=== PATIENT | female | born 2000 | race Caucasian/White ===

== ENCOUNTER 2019-10-30 11:32 | Emergency (ER) | payer MEDICAID, SELFPAY ==
[2019-10-30 11:33] VITALS: BP 108/70; PULSE 96; RESP 20; TEMP 36.7; O2SAT 96; BMI 19.8
--- NOTE | 2019-10-30 11:51 | XR_ITS ---
PROCEDURE: XR SHOULDER RT MIN 2V CLINICAL INDICATION: pain COMPARISON: No exams were available for comparison FINDINGS: No fracture or dislocation. No lytic or blastic change. There is normal mineralization. The joint spaces are well-preserved. No significant degenerative/arthritic changes. No erosive changes evident. Other findings:None. IMPRESSION: No acute findings. Dictated b Marcos Rust MD 10/30/2019 12:23 Marcos Rust MD in [place] 10/30/2019 12:23
[2019-10-30 12:54] VITALS: BP 100/51; PULSE 72; RESP 16; O2SAT 98
[2019-10-30 13:00] VITALS: BP 101/61; PULSE 61; RESP 17; O2SAT 100
--- NOTE | 2019-10-30 13:17 | HMH.EDEXTP ---
ED Disposition Clinical Impression: Tendinitis of shoulder Disposition: Home, Self-Care Condition on Discharge: Good Instructions: DI for Muscle Strain Prescriptions: Nabumetone 750 mg PO BID 10 Days #20 tab Transmission Status: Sent to [facility] #[id number] Referrals: PCP,No [Primary Care Provider] - - Critical Care Critical Care Time: No Attestation: On 10/30/19, the high probability of a clinically significant, sudden or life threatening deterioration of the following system(s) required my full and direct attention, intervention and personal management. The time I documented below is in addition to time spent performing reported procedures but includes the following listed in this critical care notation. Medical Decision Making - Medical Records Medical records reviewed: Yes: I reviewed the patient's medical records. - Kelvin Inquiry Pt receiving controlled substance: No Vital Signs: 10/30/19 11:33 10/30/19 12:54 10/30/19 13:00 Temperature 98.1 F Temperature Source Oral Pulse Rate [Right] 96 H 72 61 Respiratory Rate 20 16 17 Blood Pressure [Right Arm] 108/70 L 100/51 L 101/61 L Blood Pressure Mean [Right Arm] 82 67 74 Blood Pressure Source [Right Arm] Automatic Cuff Blood Pressure Position [Right Arm] Sitting 02 Sat by Pulse Oximetry 96 98 100 Oxygen Delivery Method Room Air Extremity Problem HPI - General Chief complaint: Extremity Problem,Nontraumatic Stated complaint: Numbness in l right arm Time Seen by Provider: 10/30/19 13:17 Mode of Arrival: Ambulatory Source of Information: Patient Limitations: No Limitations Description of Symptoms (Recalled from ER Triage Doc. by RN): C/o numbness and tingling in her left shoulder since she started sleeping on an air matress 2 weeks ago. States it feels like a pulling senstion. - History of Present Illness HPI Narrative: A healthy 19-year-old female presents the emergency department with right arm and shoulder pain. She states she slipped on an air mattress couple weeks ago and since then she has had some arm pain and shoulder pain. Patient rates her pain 3 out of 10 classifies it as sharp and numbness sensation that goes into her fingers. Patient states exacerbating factors include movement alleviating factors include rest.Patient denies any recent cough or shortness of breath, patient denies any sore throat or headache, patient denies any loss of taste or smell, patient denies any malaise or fatigue, patient denies any abdominal pain nausea vomiting or diarrhea. - Related Data Previous Rx's Medication Instructions Recorded cephALEXin [Keflex 500mg Cap] 500 mg PO TID #30 cap 08/13/18 Nabumetone 750 mg PO BID 10 Days #20 tab 10/30/19 Allergies Allergy/AdvReac Type Severity Reaction Status Date / Time Penicillins [PENICILLINS] Allergy Unknown Verified 07/12/17 17:13 [facility] History - Hepatitis A Screen Drug use history?: No High risk sexual behaviors?: No History of sexually transmitted infection?: No Currently employed?: No Childcare worker?: No Do you have indoor plumbing?: Yes Do you have electricity?: Yes Attestation statement:: This patient has been screened for Hepatitis A risk factors. I have reviewed the patient's past medical history: Yes Medical History: Denies:: Diabetes Mellitus Type 1, Diabetes Mellitus Type 2 Laterality Cases: Bilateral: Tonsillectomy - Social History Smoking Status: Current every day smoker Tobacco Type: cigarettes # Packs/Day (cigarettes): 6 Alcohol Intake: current Alcohol Intake Frequency:: a few times a week Substance Use Type: marijuana Occupational Status: unemployed ROS Obtained: Yes All systems reviewed & no additional complaints - Constitutional Constitutional: Reports system reviewed and no additional complaints, except as docu - Eyes Eyes: Reports system reviewed and no additional complaints, except as docu - ENT Ears, Nose, Mouth, and Throat: Repor
[2019-10-30 13:20] VITALS: BP 103/66; PULSE 65; RESP 16; TEMP 36.8; O2SAT 98
== END 2019-10-30 13:26 | disposition home or self-care (01) ==
PROVIDERS: Emergency Provider Family Medicine
DX: M75.82 Other shoulder lesions, left shoulder (principal); Z90.09 Acquired absence of other part of head and neck; F17.210 Nicotine dependence, cigarettes, uncomplicated
CPT/HCPCS: 73030; 99282

== ENCOUNTER 2019-12-09 14:48 | Emergency (ER) | payer MEDICAID, SELFPAY ==
[2019-12-09 15:02] VITALS: BP 106/67; PULSE 76; RESP 19; TEMP 37; O2SAT 100; BMI 20.3
--- NOTE | 2019-12-09 15:11 | HMH.EDUTC ---
[facility] [place] Impression: Otitis media Qualifiers: Otitis media type: suppurative Chronicity: acute Laterality: left Recurrence: non-recurrent Spontaneous tympanic membrane rupture: without spontaneous rupture Qualified Code(s): H66.002 - Acute suppurative otitis media without spontaneous rupture of ear drum, left ear Disposition: Home, Self-Care Condition on Discharge: Good Instructions: DI for Otitis Media (Middle Ear Infection)-Child Additional Instructions: Start antibiotic as soon as possible and be sure to take as ordered for full length of time even though he should start feeling better in 24-48 hours. Tylenol or Motrin as needed for pain or fever Encourage fluids, water, Gatorade, Powerade, Pedialyte if infant/toddler/child Warm compresses often helps when placed over ear Return immediately for new or worsening symptoms no noticeable improvement in 48-72 hours and in 10-14 days to ensure the ears are return to baseline. Follow-up with primary care Prescriptions: cephALEXin [Keflex 500mg Cap] 500 mg PO BID 10 Days #20 cap Prescription Printed Referrals: PCPCarissa [Primary Care Provider] - Time of Disposition: 15:13 Medical Decision Making - Kelvin Inquiry Pt receiving controlled substance: No Vital Signs: 12/09/19 15:02 Temperature 98.6 F Temperature Source Oral Pulse Rate [Right Brachial] 76 Respiratory Rate 19 Blood Pressure [Right Arm] 106/67 L Blood Pressure Mean [Right Arm] 80 Blood Pressure Source [Right Arm] Automatic Cuff Blood Pressure Position [Right Arm] Sitting 02 Sat by Pulse Oximetry 100 [facility] [place] - General Chief complaint: Ear Stated complaint: left ear pain Time Seen by Provider: 12/09/19 15:11 Mode of Arrival: Family Vehicle Source of Information: Patient Limitations: No Limitations Description of Symptoms (Recalled from Triage Doc. by RN): pt c/o left ear pain and drainage x's 3 days HEENT Symptoms (Recalled from RN notes): Yes Resp Symptoms (Recalled from RN notes): No Skin Symptoms (Recalled from RN notes): No MS Symptoms (Recalled from RN notes): No Functional Status (Recalled from RN notes): wnl - History of Present Illness Provider Complaint: 19 yr old female presents for left ear pain for 3 days. pt states it has drained but the pain has increased. - Related Data Previous Rx's Medication Instructions Recorded cephALEXin [Keflex 500mg Cap] 500 mg PO TID #30 cap 08/13/18 Nabumetone 750 mg PO BID 10 Days #20 tab 10/30/19 cephALEXin [Keflex 500mg Cap] 500 mg PO BID 10 Days #20 cap 12/09/19 Allergies Allergy/AdvReac Type Severity Reaction Status Date / Time Penicillins [PENICILLINS] Allergy Unknown Verified 07/12/17 17:13 - Worker's Comp Is this a Worker's Comp case?: No [facility] History - Hepatitis A Screen Drug use history?: No High risk sexual behaviors?: No History of sexually transmitted infection?: No Currently employed?: No Childcare worker?: No Do you have indoor plumbing?: Yes Do you have electricity?: Yes Attestation statement:: This patient has been screened for Hepatitis A risk factors. I have reviewed the patient's past medical history: No Medical History: Denies:: Diabetes Mellitus Type 1, Diabetes Mellitus Type 2 Laterality Cases: Bilateral: Tonsillectomy - Social History Smoking Status: Current every day smoker Tobacco Type: cigarettes # Packs/Day (cigarettes): 1 Alcohol Intake: never Alcohol Intake Frequency:: a few times a week Substance Use Type: marijuana Occupational Status: other ROS Obtained: Yes Systems reviewed as appropriate & no additional complaints - Constitutional Constitutional: Reports system reviewed and no additional complaints, except as reshmau, Denies fever(s), Denies weakness - Eyes Eyes: Reports system reviewed and no additional complaints, except as docu, Denies change in vision - ENT Ears, Nose, Mouth, and Throat: Reports system reviewed and no additional complaints, except as [place]
[2019-12-09 15:18] VITALS: BP 106/67; PULSE 76; RESP 19; TEMP 37; O2SAT 100
== END 2019-12-09 15:19 | disposition home or self-care (01) ==
PROVIDERS: Emergency Provider Nurse Practitioner Family
DX: H66.002 Acute suppurative otitis media without spontaneous rupture of ear drum, left ear (principal); F17.210 Nicotine dependence, cigarettes, uncomplicated; Z88.0 Allergy status to penicillin; F12.10 Cannabis abuse, uncomplicated
CPT/HCPCS: 99201

== ENCOUNTER 2020-06-12 02:00 | Emergency (ER) | payer OTHER, SELFPAY ==
[2020-06-12 02:11] VITALS: BP 126/69; PULSE 89; RESP 16; TEMP 37.3; O2SAT 99; BMI 20.3
--- NOTE | 2020-06-12 02:19 | HMH.EDEYEP ---
ED Disposition Clinical Impression: Bacterial conjunctivitis, History of eye prosthesis, Tattoo reaction Disposition: Home, Self-Care Condition on Discharge: Good Instructions: DI for Eye Pain Additional Instructions: see dr ureña this am and see pcp for follow up Prescriptions: cephALEXin [cephALEXin 500mg capsule*] 500 mg PO TID #30 cap Transmission Status: Pending to [facility] #[id number] Referrals: PCP,No [Primary Care Provider] - - Critical Care Critical Care Time: No Attestation: On 06/12/20, the high probability of a clinically significant, sudden or life threatening deterioration of the following system(s) required my full and direct attention, intervention and personal management. The time I documented below is in addition to time spent performing reported procedures but includes the following listed in this critical care notation. Medical Decision Making - Medical Records Medical records reviewed: Yes: I reviewed the patient's medical records. - Kelvin Inquiry Pt receiving controlled substance: No Vital Signs: 06/12/20 02:11 Temperature 99.2 F Temperature Source Oral Pulse Rate [Right] 89 Respiratory Rate 16 Blood Pressure [Right Arm] 126/69 Blood Pressure Mean [Right Arm] 88 Blood Pressure Source [Right Arm] Automatic Cuff Blood Pressure Position [Right Arm] Sitting 02 Sat by Pulse Oximetry 99 Oxygen Delivery Method Room Air Orders (Tests/Meds): ED MEDICATIONS Generic Name Dose Route Start Last Admin Trade Name Freq PRN Reason Stop Dose Admin Mupirocin 1 gm 06/12/20 09:00 06/12/20 02:23 Mupirocin 2% Ointment 22gm Tube TP 07/12/20 08:59 1 dose BID EILEEN Administration Discontinued Medications Generic Name Dose Route Start Last Admin Trade Name Freq PRN Reason Stop Dose Admin Acetaminophen/Codeine Phosphate 1 yen 06/12/20 02:19 06/12/20 02:24 Acetaminophen 300mg W/Codeine 30mg Take Home Pack (6) PO 06/12/20 02:20 1 yen ONCE ONE Administration Cephalexin HCl 500 mg 06/12/20 02:19 06/12/20 02:23 Cephalexin 500mg Capsule PO 06/12/20 02:20 500 mg ONCE ONE Administration Protocol Medical Decision Narrative: see dr ureña this am for close follow up - did get relief with eye drops Eye Problem HPI - General Chief complaint: Eye Problems Stated complaint: Bilateral eyes swollen and draining,CASTELLANOS Time Seen by Provider: 06/12/20 02:19 Mode of Arrival: Ambulatory Source of Information: Patient, Medical Record Limitations: No Limitations Description of Symptoms (Recalled from ER Triage Doc. by RN): Pt states she started to have redness and swelling of her eyes this morning that continued to get worse. Pt has odvious redness and edema, she has a left prostetic eye. - History of Present Illness HPI Narrative: pt with rt eye reddness and swelling with some matting - has prostetic lt eye - has uri sx with some facial pain - infected rt forearm tatoo which pt thinks might be infected for 3 days - denied other c/o - no focal neuro sx - no ivdu chief complaint: eye redness Onset (ago): day(s) Onset description: gradual Location: right eye (lt eye prostetic ) Eye Symptoms: discharge Place: home Mechanism: none Severity: moderate Associated symptoms: none Treatments Prior to Arrival: none - Related Data Patient tetanus UTD: No Previous Rx's Medication Instructions Recorded cephALEXin [Keflex 500mg Cap] 500 mg PO TID #30 cap 08/13/18 Nabumetone 750 mg PO BID 10 Days #20 tab 10/30/19 cephALEXin [Keflex 500mg Cap] 500 mg PO BID 10 Days #20 cap 12/09/19 cephALEXin [cephALEXin 500mg 500 mg PO TID #30 cap 06/12/20 capsule*] Allergies Allergy/AdvReac Type Severity Reaction Status Date / Time Penicillins [PENICILLINS] Allergy Unknown Verified 07/12/17 17:13 [facility] History - Hepatitis A Screen Drug use history?: No High risk sexual behaviors?: No History of sexually transmitted infection?: No Currently employed?: No Ch
[2020-06-12 02:39] VITALS: BP 126/69; PULSE 87; RESP 16; TEMP 37.3; O2SAT 99
== END 2020-06-12 02:41 | disposition home or self-care (01) ==
PROVIDERS: Emergency Provider Emergency Medicine
DX: H10.33 Unspecified acute conjunctivitis, bilateral (principal); Z97.0 Presence of artificial eye; L03.113 Cellulitis of right upper limb; L81.8 Other specified disorders of pigmentation; F17.210 Nicotine dependence, cigarettes, uncomplicated; Z88.0 Allergy status to penicillin; Z23 Encounter for immunization
CPT/HCPCS: 90471; 90714; 99281

== ENCOUNTER 2020-07-08 16:55 | Emergency (ER) | payer OTHER, SELFPAY ==
[2020-07-08 16:56] VITALS: BP 101/67; PULSE 84; RESP 18; TEMP 36.6; O2SAT 99
--- NOTE | 2020-07-08 17:16 | HMH.EDGENADL ---
ED Disposition Clinical Impression: Gastroenteritis Contact dermatitis Qualifiers: Contact dermatitis type: unspecified Contact dermatitis trigger: unspecified trigger Qualified Code(s): L25.9 - Unspecified contact dermatitis, unspecified cause Disposition: Home, Self-Care Condition on Discharge: Good Instructions: DI for Contact Dermatitis, DI for Diarrhea and Traveler's Diarrhea -- Adult, DI for Acute Abdominal Pain, DI for Vomiting -- Adult Additional Instructions: Prednisone and hydroxyzine as prescribed. Zofran as needed for nausea and vomiting. You may take [id number] Imodium as needed for diarrhea. Additional instructions for ABDOMINAL PAIN: See a primary care physician as soon as possible for further evaluation. Return immediately if worsening abdominal pain, vomiting, shortness of breath, fever, vomiting of blood or abdominal distention. You are being provided with a list of physicians available for follow-up of your condition. Please call a physician on this list to arrange a follow-up appointment as soon as possible. Prescriptions: hydrOXYzine pamoate [Hydroxyzine Pamoate] 50 mg PO Q6H 5 Days #20 cap Transmission Status: Received by [facility] #[id number] predniSONE [Prednisone 20mg Tab] 20 mg PO BID #10 tab Transmission Status: Received by [facility] #[id number] Ondansetron [Zofran 4mg ODT] 4 mg PO TIDP PRN #10 tab.rapdis PRN Reason: Nausea And Vomiting Transmission Status: Pending to [facility] #[id number] Referrals: PCP,No [Primary Care Provider] - - Critical Care Critical Care Time: No Attestation: On 07/08/20, the high probability of a clinically significant, sudden or life threatening deterioration of the following system(s) required my full and direct attention, intervention and personal management. The time I documented below is in addition to time spent performing reported procedures but includes the following listed in this critical care notation. Medical Decision Making - Kelvin Inquiry Pt receiving controlled substance: No Vital Signs: 07/08/20 16:56 07/08/20 18:01 Temperature 97.8 F Temperature Source Oral Pulse Rate 78 Pulse Rate [Right] 84 Respiratory Rate 18 18 Blood Pressure 99/56 L Blood Pressure [Right Arm] 101/67 L Blood Pressure Mean [Right Arm] 78 Blood Pressure Source [Right Arm] Manual Cuff/ Auscultation 02 Sat by Pulse Oximetry 99 98 Oxygen Delivery Method Room Air Room Air - Lab Data Lab Results 07/08/20 17:13: Urine Color Yellow, Urine Appearance Clear, Urine pH 7.5, Ur Specific [place] 1.020, Urine Protein Negative, Urine Glucose (UA) Negative, Urine Ketones Negative, Urine Blood Negative, Urine Nitrate Negative, Urine Bilirubin Negative, Urine Urobilinogen 2.0, Ur Leukocyte Esterase Negative, Urine WBC 3-5, Ur Squamous Epith Cells 3-5, Urine Bacteria 1+, Urine Mucus 2+ 07/08/20 17:13: Urine HCG, Qual Negative 07/08/20 17:29: WBC 8.5, RBC 4.51, Hgb 13.8, Hct 41.4, MCV 91.8, MCH 30.7, MCHC 33.4, RDW 13.5, Plt Count 305, MPV 7.6, Neut % (Auto) 60.0, Lymph % (Auto) 25.4, [place] % (Auto) 5.7, Eos % (Auto) 7.8, Baso % (Auto) 1.1, Neut # (Auto) 5.1, Lymph # (Auto) 2.2, [place] # (Auto) 0.5, Eos # (Auto) 0.7 H, Baso # (Auto) 0.1 07/08/20 17:29: Sodium 138, Potassium 4.0, Chloride 103, Carbon Dioxide 26, Anion Gap 13.0, BUN 19 H, Creatinine 0.70, Estimated Creat Clear 116, Estimated GFR 105, Est GFR ( Amer) 127, Glucose 97, Calcium 9.5, Total Bilirubin 0.7, AST 30, ALT 17, Alkaline Phosphatase 53, Total Protein 7.6, Albumin 4.5, Globulin 3.1, Albumin/Globulin Ratio 1.5, Lipase 145 Result diagrams: 07/08/20 17:29 07/08/20 17:29 Orders (Tests/Meds): ED MEDICATIONS Discontinued Medications Generic Name Dose Route Start Last Admin Trade Name Freq PRN Reason Stop Dose Admin Methylprednisolone Sodium Succinate 125 mg 07/08/20 18:21 07/08/20 18:40 Methylprednisolone Sod Succ 125mg Vial IV 07/08/20 18:22 125
[2020-07-08 17:21] LABS: Microscopic, Urine URINE MICROSCOPIC (MICROSCOPIC)
[2020-07-08 17:24] LABS: Appearance,Urine CLEAR (Clear); Bilirubin,Urine Negative (Negative); Blood, Urine Negative (Negative); Color,Urine YELLOW (Yellow); Glucose,Urine (UA) Negative (Negative); Ketones,Urine Negative (Negative); Leukocyte Esterase,Urine Negative (Negative); Nitrate,Urine Negative (Negative); PH,Urine 7.5 (5.0-8.5); Protein,Urine Negative (Negative)
[2020-07-08 17:32] LABS: Urine Pregnancy, HCG Qual. Negative (Negative)
[2020-07-08 17:34] LABS: Bacteria,Urine 1+ /lpf; Mucus,Urine 2+ /lpf
[2020-07-08 17:48] LABS: Chloride 103 mmol/L (98-107); Sodium 138 mmol/L (136-145)
[2020-07-08 17:50] LABS: Alanine Aminotransferase 17 U/L (12-78); Blood Urea Nitrogen 19 mg/dl (7-17); Creatinine Clearance Estimated 116 mL/min (50-200); Estimated Glomerular Filt Rate 105 ml/min (>60); GFR (African American) 127 ML/MIN (>60)
[2020-07-08 17:51] LABS: Albumin Level 4.5 g/dl (3.5-5.0); Albumin/Globulin Ratio 1.5 (1.1-1.8); Alkaline Phosphatase 53 U/L (38-126); Aspartate Amino Transferase 30 U/L (14-36); Bilirubin,Total 0.7 mg/dl (0.2-1.3); Calcium 9.5 mg/dl (8.4-10.2); Carbon Dioxide 26 mmol/L (22.0-30.0); Globulin 3.1 g/dL (1.3-3.2); Glucose 97 mg/dl (74-100); Lipase 145 U/L (23-300); Total Protein,Serum 7.6 g/dl (6.3-8.2)
[2020-07-08 18:01] VITALS: BP 99/56; PULSE 78; RESP 18; O2SAT 98
[2020-07-08 18:01] LABS: Basophils # 0.1 K/mm3 (0-0.2); Basophils % 1.1 % (0.1-2.0); Eosinophils # 0.7 K/mm3 (0.0-0.4); Eosinophils % 7.8 % (0.1-12.0); Hematocrit 41.4 % (37.0-47.0); Hemoglobin 13.8 g/dL (12.2-16.2); Lymphocytes # 2.2 K/mm3 (0.7-4.5); Lymphocytes % 25.4 % (10-50); Mean Corpuscular HGB Conc 33.4 g/dL (31.8-35.4); Mean Corpuscular Hemoglobin 30.7 pg (27.0-31.2); Mean Corpuscular Volume 91.8 fl (81-99); Mean Platelet Volume 7.6 fl (7.4-10.4); Monocytes # 0.5 K/mm3 (0.1-1.0); Monocytes % 5.7 % (1.7-9.3); Neutrophils # 5.1 K/mm3 (1.8-7.8); Platelet Count 305 K/mm3 (142-424); Red Blood Count 4.51 M/mm3 (4.20-5.40); Red Cell Distribution Width 13.5 % (11.5-17.5); White Blood Count 8.5 K/mm3 (4.8-10.8)
[2020-07-08 19:04] VITALS: BP 99/56; PULSE 78; RESP 18; TEMP 36.6; O2SAT 98
== END 2020-07-08 19:04 | disposition home or self-care (01) ==
PROVIDERS: Emergency Provider Emergency Medicine
DX: K52.9 Noninfective gastroenteritis and colitis, unspecified (principal); L25.9 Unspecified contact dermatitis, unspecified cause; F17.210 Nicotine dependence, cigarettes, uncomplicated
CPT/HCPCS: 80053; 81001; 81025; 83690; 85025; 96374; 99282

== ENCOUNTER → 2020-07-29 13:00 | Outpatient (CLI) | payer OTHER, SELFPAY | PROVIDERS: Visit Provider Nurse Practitioner Obstetrics & Gynecology | DX: Z34.90 Encounter for supervision of normal pregnancy, unspecified, unspecified trimester (principal) | CPT/HCPCS: 36415; 84702 ==

== ENCOUNTER → 2020-08-20 14:45 | Outpatient (CLI) | payer OTHER, SELFPAY ==
--- NOTE | 2020-08-20 14:46 | US_ITS ---
PROCEDURE: US OB <= 14 WEEKS FETUS CLINICAL INDICATION: for dates Early Ob ultrasound for dates COMPARISON: No exams were available for comparison FINDINGS: An intrauterine gestational sac is present with a pole with a crown-rump length of 2.36cm correlating to gestational age of 9weeks 1day. heart tones are present with an FHR of 167bpm. Yolk sac is noted. There is an oval area of decreased echogenicity along the anterior aspect of the gestational sac measuring 2 x 0.9 cm suggesting a small area subchorionic bleed. IMPRESSION: Live IUP at 9 weeks 1 day. Small hypoechoic areas present anterior to the gestational sac suggesting a small subchorionic bleed. Follow-up suggested. Estimated due date by Ultrasound is 03/24/2021 Dictated by: Marcos Rust MD 08/20/2020 16:54 Marcos Rust MD in [place] 08/20/2020 16:54
== END ==
PROVIDERS: PCP Nurse Practitioner Obstetrics & Gynecology; Visit Provider Nurse Practitioner Obstetrics & Gynecology
DX: Z34.90 Encounter for supervision of normal pregnancy, unspecified, unspecified trimester (principal)
CPT/HCPCS: 76801

== ENCOUNTER → 2020-09-08 16:41 | Outpatient (CLI) | payer OTHER, SELFPAY ==
[2020-09-08 17:20] LABS: Basophils # 0.1 K/mm3 (0-0.2); Basophils % 0.6 % (0.1-2.0); Eosinophils # 0.4 K/mm3 (0.0-0.4); Eosinophils % 3.9 % (0.1-12.0); Hematocrit 37.6 % (37.0-47.0); Hemoglobin 13.1 g/dL (12.2-16.2); Lymphocytes # 1.8 K/mm3 (0.7-4.5); Lymphocytes % 20.4 % (10-50); Mean Corpuscular Hemoglobin 31.1 pg (27.0-31.2); Mean Corpuscular Volume 89.1 fl (81-99); Mean Platelet Volume 7.3 fl (7.4-10.4); Monocytes # 0.5 K/mm3 (0.1-1.0); Monocytes % 5.7 % (1.7-9.3); Neutrophils # 6.2 K/mm3 (1.8-7.8); Neutrophils % 69.5 % (37.0-80.0); Platelet Count 294 K/mm3 (142-424); Red Blood Count 4.22 M/mm3 (4.20-5.40); Red Cell Distribution Width 13.3 % (11.5-17.5); White Blood Count 8.9 K/mm3 (4.8-10.8)
[2020-09-10 07:12] LABS: HIV Screen 4th Generation wRfx Non Reactive (Non Reactive)
[2020-09-10 09:13] LABS: HSV 2 IgG, Type Spec <0.91 index (0.00-0.90); Hepatitis B Surface Antigen Negative (Negative); Hepatitis C Antibody <0.1 s/co ratio (0.0-0.9); Rapid Plasma Reagin Ab Titer Non Reactive (NonRea<1:1); Rubella Antibodies, IgG 2.43 index (Immune >0.99)
== END ==
PROVIDERS: Visit Provider Nurse Practitioner Obstetrics & Gynecology
DX: Z34.90 Encounter for supervision of normal pregnancy, unspecified, unspecified trimester (principal)
CPT/HCPCS: 36415; 85025; 86592; 86695; 86703; 86762; 86790; 86850; 87340; 87380; G0432

== ENCOUNTER → 2020-11-03 13:22 | Outpatient (CLI) | payer OTHER, SELFPAY ==
--- NOTE | 2020-11-03 13:32 | US_ITS ---
PROCEDURE: US OB /MATERNAL DETAIL CLINICAL INDICATION: 20 week u/s COMPARISON: US US OB <= 14 WEEKS FETUS from 08/20/2020 FINDINGS: There is a single live fetus present in the cephalic presentation. heart body motion is noted. The cervix is closed and measures 3 cm. The placenta is posterior and grade 1. Complete survey performed and was unremarkable on the submitted images as in PACS. No discrete anomalies identified on survey imaging by technologist. Active fetus. Three-vessel cord with satisfactory umbilical cord insertion. 4- chamber heart noted. Survey of brain & ventricles Unremarkable. Face and neck survey unremarkable. Diaphragm and chest views unremarkable. Abdomen: Both kidneys noted and unremarkable. Stomach noted and satisfactory. Spine: Survey of the spine satisfactory with no anomalies identified nor imaged. Both arms and legs noted. Amniotic Fluid: Adequate. Maternal adnexa: No significant findings. Measurements: Average ultrasound age 19weeks 4days. Gestational Age 19weeks 4days Estimated due date by ultrasound age 0103/26/2021. Estimated weight 297g BPD = 19weeks 6days OFD = 19weeks 4days HC = 19weeks AC = 19weeks 5days FL = 19weeks 3days Growth Percentile= 27% Heart Rate = 139bpm Cerebellum = 19weeks 5days Humerus = 19weeks 5days HC/AC is 1.12 CI is 0.81 FL/BPD is 0.67 FL/AC is 0.21 IMPRESSION: Live IUP at 19 weeks 4 days. No obvious anomalies. All parameters correlate. Please see above for detail. Dictated by: Marcos Rust MD 11/03/2020 17:26 Marcos Rust MD in [place] 11/03/2020 17:26
== END ==
PROVIDERS: Visit Provider Nurse Practitioner Obstetrics & Gynecology
DX: Z36.0 Encounter for antenatal screening for chromosomal anomalies (principal); Z3A.20 20 weeks gestation of pregnancy
CPT/HCPCS: 76811

== ENCOUNTER 2020-11-11 20:28 | Emergency (ER) | payer OTHER, SELFPAY ==
[2020-11-11 20:50] VITALS: BP 128/73; PULSE 89; RESP 18; TEMP 37.1; O2SAT 98; BMI 20.9
--- NOTE | 2020-11-11 21:02 | PC.NURSE ---
Heart tones 150
[2020-11-11 21:11] LABS: Influenza A, PCR Not Detected (NotDetected); Influenza B, PCR Not Detected (NotDetected)
[2020-11-11 21:20] LABS: Basophils % 0.6 % (0.1-2.0); Eosinophils # 0.2 K/mm3 (0.0-0.4); Eosinophils % 2.8 % (0.1-12.0); Hematocrit 35.9 % (37.0-47.0); Hemoglobin 12.1 g/dL (12.2-16.2); Lymphocytes # 0.8 K/mm3 (0.7-4.5); Lymphocytes % 10.9 % (10-50); Mean Corpuscular HGB Conc 33.8 g/dL (31.8-35.4); Mean Corpuscular Hemoglobin 30.5 pg (27.0-31.2); Mean Corpuscular Volume 90.3 fl (81-99); Mean Platelet Volume 7.7 fl (7.4-10.4); Monocytes # 0.4 K/mm3 (0.1-1.0); Monocytes % 5.7 % (1.7-9.3); Neutrophils # 5.7 K/mm3 (1.8-7.8); Platelet Count 291 K/mm3 (142-424); Red Blood Count 3.97 M/mm3 (4.20-5.40); Red Cell Distribution Width 13.8 % (11.5-17.5); White Blood Count 7.1 K/mm3 (4.8-10.8)
--- NOTE | 2020-11-11 21:21 | HMH.EDPREG ---
ED Disposition Clinical Impression: History of eye prosthesis, Nystagmus of right eye, Pain, dental, COVID-19 affecting in second trimester Qualifiers: Weeks of gestation: 20 weeks Qualified Code(s): Z3A.20 - 20 weeks gestation of Disposition: Home, Self-Care Condition on Discharge: Good Instructions: DI for -- Discomforts and Remedies, DI for COVID-19 (Suspected or Confirmed ) Additional Instructions: call dr pastrana in am Referrals: Provider,MD Froylan [Primary Care Provider] - Abdi Pastrana MD [Staff Physician] - - Critical Care Critical Care Time: No Attestation: On 11/11/20, the high probability of a clinically significant, sudden or life threatening deterioration of the following system(s) required my full and direct attention, intervention and personal management. The time I documented below is in addition to time spent performing reported procedures but includes the following listed in this critical care notation. Medical Decision Making - Medical Records Medical records reviewed: Yes: I reviewed the patient's medical records. - Kelvin Inquiry Pt receiving controlled substance: No Vital Signs: 11/11/20 20:50 Temperature 98.8 F Temperature Source Oral Pulse Rate [Right] 89 Respiratory Rate 18 Blood Pressure [Right Arm] 128/73 Blood Pressure Mean [Right Arm] 91 Blood Pressure Source [Right Arm] Automatic Cuff Blood Pressure Position [Right Arm] Sitting 02 Sat by Pulse Oximetry 98 Oxygen Delivery Method Room Air - Lab Data Lab results reviewed: Yes: I reviewed the patient's lab results. Lab Results 11/11/20 20:46: SARS-CoV-2 (PCR) Detected A, Influenza A Untype (PCR) Not detected, Influenza Type B (PCR) Not detected 11/11/20 21:00: WBC 7.1, RBC 3.97 L, Hgb 12.1 L, Hct 35.9 L, MCV 90.3, MCH 30.5, MCHC 33.8, RDW 13.8, Plt Count 291, MPV 7.7, Neut % (Auto) 80.0, Lymph % (Auto) 10.9, [place] % (Auto) 5.7, Eos % (Auto) 2.8, Baso % (Auto) 0.6, Neut # (Auto) 5.7, Lymph # (Auto) 0.8, [place] # (Auto) 0.4, Eos # (Auto) 0.2, Baso # (Auto) 0.0 11/11/20 21:00: Sodium 138, Potassium 3.8, Chloride 103, Carbon Dioxide 25, Anion Gap 13.8, BUN 9, Creatinine 0.50 L, Estimated Creat Clear 169, Estimated GFR 154, Est GFR ( Amer) 187, Glucose 91, Calcium 9.2, Total Bilirubin 0.4, AST 56 H, ALT 39, Alkaline Phosphatase 49, C-Reactive Protein 2.8, Total Protein 7.8, Albumin 4.0, Globulin 3.8 H, Albumin/Globulin Ratio 1.1 11/11/20 21:40: Urine Color Yellow, Urine Appearance Clear, Urine pH 7.0, Ur Specific [place] 1.020, Urine Protein Negative, Urine Glucose (UA) Negative, Urine Ketones Negative, Urine Blood Negative, Urine Nitrate Negative, Urine Bilirubin Negative, Urine Urobilinogen 1.0, Ur Leukocyte Esterase Negative Result diagrams: 11/11/20 21:00 11/11/20 21:00 Orders (Tests/Meds): ED MEDICATIONS Generic Name Dose Route Start Last Admin Trade Name Freq PRN Reason Stop Dose Admin Sodium Chloride 1,000 mls @ 999 mls/hr 11/11/20 21:15 11/11/20 21:11 Sod Chlor 0.9% 1000ml Bag IV 11/11/20 22:15 999 mls/hr .Q1H1M EILEEN Administration Ceftriaxone Sodium 1 gm/ 50 mls @ 100 mls/hr 11/11/20 21:15 11/11/20 21:11 Sodium Chloride IV 11/25/20 21:14 100 mls/hr Q24H EILEEN Administration Discontinued Medications Generic Name Dose Route Start Last Admin Trade Name Freq PRN Reason Stop Dose Admin Ondansetron HCl 4 mg 11/11/20 21:09 11/11/20 21:11 Ondansetron 4mg/2ml Vial IV 11/11/20 21:10 4 mg ONCE ONE Administration ORDERS Category Date Time Status C-Reactive Protein Stat Lab 11/11/20 21:00 Results Complete Blood Count Auto Diff Stat Lab 11/11/20 21:00 Results Comprehensive Metabolic Panel Stat Lab 11/11/20 21:00 Results Erythrocyte Sedimentation Rate Stat Lab 11/11/20 21:00 Results HCG,Quantitative Stat Lab 11/11/20 21:00 Results Procalcitonin Stat Lab 11/11/20 21:00 Results Urinalysis and Microscopic Stat Lab 11/11/20 21:
[2020-11-11 21:38] LABS: Coronavirus 19, PCR Detected (NotDetected)
[2020-11-11 21:43] LABS: Chloride 103 mmol/L (98-107); Potassium 3.8 mmoL/L (3.5-5.1); Sodium 138 mmol/L (136-145)
[2020-11-11 21:46] LABS: Alanine Aminotransferase 39 U/L (12-78); Albumin/Globulin Ratio 1.1 (1.1-1.8); Alkaline Phosphatase 49 U/L (38-126); Anion Gap 13.8 mEq/L (5-15); Aspartate Amino Transferase 56 U/L (14-36); Bilirubin,Total 0.4 mg/dl (0.2-1.3); Blood Urea Nitrogen 9 mg/dl (7-17); Calcium 9.2 mg/dl (8.4-10.2); Carbon Dioxide 25 mmol/L (22.0-30.0); Creatinine Clearance Estimated 169 mL/min (50-200); Estimated Glomerular Filt Rate 154 ml/min (>60); GFR (African American) 187 ML/MIN (>60); Globulin 3.8 g/dL (1.3-3.2); Glucose 91 mg/dl (74-100); Total Protein,Serum 7.8 g/dl (6.3-8.2)
[2020-11-11 21:46] LABS: Microscopic, Urine URINE MICROSCOPIC (MICROSCOPIC)
[2020-11-11 21:48] LABS: Appearance,Urine CLEAR (Clear); Bilirubin,Urine Negative (Negative); Blood, Urine Negative (Negative); Color,Urine YELLOW (Yellow); Glucose,Urine (UA) Negative (Negative); Ketones,Urine Negative (Negative); Leukocyte Esterase,Urine Negative (Negative); Nitrate,Urine Negative (Negative); Protein,Urine Negative (Negative)
[2020-11-11 21:52] LABS: C-Reactive Protein 2.8 mg/L (0-4)
[2020-11-11 22:12] LABS: Bacteria,Urine Trace /lpf; RBC,Urine Occasional #/hpf (0-3); WBC,Urine Occasional #/hpf (0-3)
[2020-11-11 22:16] LABS: Erythrocyte Sedimentation Rate 92 mm/hr (0-20)
[2020-11-11 22:19] LABS: Procalcitonin 0.077 ng/mL (0.0-2.0)
[2020-11-11 22:30] VITALS: BP 132/72; PULSE 78; RESP 18; TEMP 37.1; O2SAT 98
[2020-11-12 02:17] LABS: HCG,Quantitative 14745 mIU/ml (0-5.42)
== END 2020-11-11 22:32 | disposition home or self-care (01) ==
PROVIDERS: Emergency Provider Emergency Medicine
DX: U07.1 COVID-19 (principal); O98.512 Other viral diseases complicating pregnancy, second trimester; H55.00 Unspecified nystagmus; Z97.0 Presence of artificial eye; Z3A.20 20 weeks gestation of pregnancy
CPT/HCPCS: 80053; 81001; 84145; 84702; 85025; 85651; 86140; 96365; 96367; 96375; 99283; J2405; U0003

== ENCOUNTER → 2020-12-30 12:10 | Outpatient (CLI) | payer OTHER, SELFPAY ==
[2020-12-30 12:59] LABS: Glucose,Fasting 85 mg/dl (74-100)
[2020-12-30 16:44] LABS: Glucose 1 Hour 106 mg/dL (74-100)
== END ==
PROVIDERS: Visit Provider Nurse Practitioner Obstetrics & Gynecology
DX: Z34.90 Encounter for supervision of normal pregnancy, unspecified, unspecified trimester (principal)
CPT/HCPCS: 36415; 82951

== ENCOUNTER 2021-01-13 08:56 | Outpatient (CLI) | payer OTHER, SELFPAY ==
[2021-01-13 09:09] VITALS: BMI 24.3
[2021-01-13 09:16] LABS: Microscopic, Urine URINE MICROSCOPIC (MICROSCOPIC)
[2021-01-13 09:22] LABS: Appearance,Urine CLEAR (Clear); Bilirubin,Urine Negative (Negative); Blood, Urine Negative (Negative); Color,Urine YELLOW (Yellow); Glucose,Urine (UA) Negative (Negative); Ketones,Urine Negative (Negative); Leukocyte Esterase,Urine 1+ (Negative); Nitrate,Urine Negative (Negative); Protein,Urine Negative (Negative); Urobilinogen,Urine 0.2 EU/dl (0.2)
[2021-01-13 09:35] LABS: Amphetamine/Metha Screen,Urine Negative ng/ml (<1000); Bacteria,Urine Trace /lpf; Benzodiazepines Screen,Urine Negative ng/ml (<200); Squamous Epithelial Cell,Urine Occasional #/hpf (0-5); WBC,Urine Occasional #/hpf (0-3)
[2021-01-13 09:36] LABS: Barbiturates Screen,Urine Negative ng/ml (<200); Methadone Screen,Urine Negative ng/ml (<300)
[2021-01-13 09:37] LABS: Cannabinoid Screen,Urine Positive ng/ml (<50)
[2021-01-13 09:38] LABS: Cocaine Screen,Urine Negative ng/ml (<300); Opiate Screen,Urine Negative ng/ml (<300)
[2021-01-13 09:39] LABS: Phencyclidine Screen,Urine Negative ng/ml (<25)
[2021-01-13 09:41] VITALS: BP 128/69; PULSE 92; RESP 20; TEMP 36.7; O2SAT 95; BMI 24.3
== END 2021-01-13 11:14 | disposition home or self-care (01) ==
LOC: OBOUT 08:58 → OB 08:59
PROVIDERS: PCP Obstetrics & Gynecology; Visit Provider Obstetrics & Gynecology
DX: O47.03 False labor before 37 completed weeks of gestation, third trimester (principal); Z3A.30 30 weeks gestation of pregnancy
CPT/HCPCS: 59025; 80305; 81001; 87086; 96365; G0463

== ENCOUNTER → 2021-02-17 12:50 | Outpatient (CLI) | payer OTHER, SELFPAY ==
--- NOTE | 2021-02-17 12:51 | US_ITS ---
PROCEDURE: US OB FOLLOW UP CLINICAL INDICATION: sga TECHNIQUE: FINDINGS: The following parameters are obtained: There is a single live fetus which is in cephalic presentation. The placenta is posterior fundal in implantation and grade 3. Within the anterior and lower aspect of the placenta there is a 4 x 1.6 cm area of slightly decreased echogenicity nonspecific. Average ultrasound age is Average 35weeks Estimated due date by ultrasound is 03/24/2021. Estimated weight is 2,540g. This is 43 percentile BPD: 35weeks 4days OFD: 35weeks 4days HC: 34 weeks 6 days AC: 35 weeks 1 day FL: 34 weeks 6 days heart rate: 139bpm bpm. HC/AC: 1 Cephalic index: 0.78 FL/BPD: 0.78 FL/AC: 0.22 Amniotic fluid index: 10.38cm Qualitative AFV: 2 breathing movements: 2 Gross body movements: 2 Tone: 2 Biophysical profile score: 8 IMPRESSION: Live IUP at 35 weeks. Estimated weight is 2540 g which is 43rd percentile. All parameters correlate. Biophysical profile 8 of 8 with normal amniotic fluid index. There is a posterior grade 3 placenta with focal area decreased echogenicity along the anterior aspect of the placenta etiology indeterminate. May represent developing chronic change in this grade 3 placenta. Follow-up may confirm stability.. Dictated by: Marcos Rust MD 03/02/2021 15:31 Marcos Rust MD in [place] 03/02/2021 15:31
== END ==
PROVIDERS: PCP Nurse Practitioner Obstetrics & Gynecology; Visit Provider Nurse Practitioner Obstetrics & Gynecology
DX: O36.5990 Maternal care for other known or suspected poor fetal growth, unspecified trimester, not applicable or unspecified (principal)
CPT/HCPCS: 76816; 76819

== ENCOUNTER → 2021-02-23 07:50 | Outpatient (CLI) | payer OTHER, SELFPAY | PROVIDERS: Visit Provider Nurse Practitioner Obstetrics & Gynecology | DX: Z34.90 Encounter for supervision of normal pregnancy, unspecified, unspecified trimester (principal); Z3A.34 34 weeks gestation of pregnancy | CPT/HCPCS: 86403 ==

== ENCOUNTER 2021-03-21 16:36 | Inpatient (IN) | payer OTHER, SELFPAY ==
[2021-03-21] VITALS (8 sets, daily range): BP systolic 112–130; BP diastolic 58–83; PULSE 67–96; RESP 12–20; TEMP 36.6–37.2; O2SAT 95–100; BMI 25.9; BMI 25.8
[2021-03-21 14:50] LABS: Microscopic, Urine URINE MICROSCOPIC (MICROSCOPIC)
[2021-03-21 14:54] LABS: Appearance,Urine CLEAR (Clear); Bilirubin,Urine Negative (Negative); Blood, Urine Negative (Negative); Color,Urine YELLOW (Yellow); Glucose,Urine (UA) Negative (Negative); Ketones,Urine Negative (Negative); Leukocyte Esterase,Urine TRACE (Negative); Nitrate,Urine Negative (Negative); Protein,Urine Negative (Negative); Specific Gravity, Urine 1.015 (1.005-1.030); Urobilinogen,Urine 0.2 EU/dl (0.2)
[2021-03-21 15:05] LABS: Amphetamine/Metha Screen,Urine Negative ng/ml (<1000); Barbiturates Screen,Urine Negative ng/ml (<200)
[2021-03-21 15:06] LABS: Benzodiazepines Screen,Urine Negative ng/ml (<200)
[2021-03-21 15:07] LABS: Cannabinoid Screen,Urine Positive ng/ml (<50); Cocaine Screen,Urine Negative ng/ml (<300)
[2021-03-21 15:08] LABS: Bacteria,Urine 1+ /lpf
[2021-03-21 15:09] LABS: Opiate Screen,Urine Negative ng/ml (<300); Phencyclidine Screen,Urine Negative ng/ml (<25)
[2021-03-21 15:12] LABS: Fetal Membrane Rupture (Rapid) Positive (Negative)
[2021-03-21 15:12] LABS: Methadone Screen,Urine Negative ng/ml (<300)
[2021-03-21 15:56] LABS: Coronavirus 19, PCR Not Detected (NotDetected); Influenza A, PCR Not Detected (NotDetected); Influenza B, PCR Not Detected (NotDetected)
[2021-03-21 16:09] LABS: Basophils # 0.1 K/mm3 (0-0.2); Eosinophils # 0.1 K/mm3 (0.0-0.4); Hematocrit 36.3 % (37.0-47.0); Hemoglobin 11.8 g/dL (12.2-16.2); Lymphocytes # 2.1 K/mm3 (0.7-4.5); Lymphocytes % 15.3 % (10-50); Mean Corpuscular HGB Conc 32.5 g/dL (31.8-35.4); Mean Corpuscular Volume 92.1 fl (81-99); Mean Platelet Volume 8.3 fl (7.4-10.4); Monocytes # 0.6 K/mm3 (0.1-1.0); Monocytes % 4.4 % (1.7-9.3); Neutrophils % 78.4 % (37.0-80.0); Platelet Count 354 K/mm3 (142-424); Red Blood Count 3.95 M/mm3 (4.20-5.40); Red Cell Distribution Width 13.4 % (11.5-17.5); White Blood Count 14.1 K/mm3 (4.8-10.8)
--- NOTE | 2021-03-21 17:03 | HMH.HP ---
*Admission Date: 03/21/21 *Chief complaint: rupture of membranes *History of present illness: 20 yo G1 @ 39 4/7 presented with complaint of leakage of fluid since 03/20/21. care at [facility] with Dr. Pastrana She is unable to specify what time she began noticing leakage of fluid on 03/20/21 but contractions became more regular and intense on the afternoon of 03/21/21. She denies vaginal bleeding and reports normal movement. She denies fever, abdominal pain or purulent vaginal discharge. On pelvic exam, meconium stained amniotic fluid was noted and amnisure test was positive. 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 She has a history of drug abuse and UDS on admission positive for THC Mild anemia with Hgb 11.8 Previous covid 19 infection during this but current covid testing negative [facility] History I have reviewed the patient's past medical history: Yes Medical History: Denies:: Diabetes Mellitus Type 1, Diabetes Mellitus Type 2 *Have you ever received a pneumonia vaccine?: No *Have you received a flu vaccine this season?: No Laterality Cases: Bilateral: Tonsillectomy Other Surgeries: No: Amputation: No Fractures: No - *Social History Smoking Status: Current every day smoker Tobacco Type: e-cigarettes # Packs/Day (cigarettes): 1 Alcohol Intake: never Alcohol Intake Frequency:: a few times a week Substance Use Type: marijuana *Occupational Status:: unemployed *Travel in the last 8 weeks: None Family Hx:: Cancer, Diabetes, Other : 1 Para: 0 Review of Systems - Review of Systems Review of systems:: pertinent systems reviewed and negative unless documented below - *Genitourinary Reports other (leakage of amniotic fluid, contractions), Denies abnormal vaginal bleeding Meds Home Medications Medication Instructions Recorded Confirmed Type prenat.vits,ashley,xzo-tpfq-cvbqg 1 tab PO DAILY 08/12/20 03/21/21 History Ferrous Sulfate 325 mg PO DAILY 03/21/21 03/21/21 History Allergies Allergy/AdvReac Type Severity Reaction Status Date / Time Penicillins [PENICILLINS] Allergy Unknown Verified 03/19/21 12:07 Exam Vital signs and Labs for Last 24 Hours: Temp Pulse Resp BP Pulse Ox 98.5 F 96 H 20 118/79 95 03/21/21 15:01 03/21/21 15:01 03/21/21 15:03/21/21 15:03/21/21 15:01 Laboratory Results - last 24 hr 03/21/21 14:36: Urine Color Yellow, Urine Appearance Clear, Urine pH 8.0, Ur Specific [place] 1.015, Urine Protein Negative, Urine Glucose (UA) Negative, Urine Ketones Negative, Urine Blood Negative, Urine Nitrate Negative, Urine Bilirubin Negative, Urine Urobilinogen 0.2, Ur Leukocyte Esterase Trace, Urine RBC 3-5, Urine WBC 5-10, Ur Squamous Epith Cells 5-10, Urine Bacteria 1+ 03/21/21 14:36: Urine Opiates Screen Negative, Urine Methadone Screen Negative, Ur Barbituates Screen Negative, Ur Phencyclidine Scrn Negative, Ur Amphetamines Screen Negative, U Benzodiazepines Scrn Negative, Urine Cocaine Screen Negative, U Marijuana (THC) Screen Positive H 03/21/21 14:45: Membrane Rupture Positive A 03/21/21 15:25: WBC 14.1 H, RBC 3.95 L, Hgb 11.8 L, Hct 36.3 L, MCV 92.1, MCH 30.0, MCHC 32.5, RDW 13.4, Plt Count 354, MPV 8.3, Neut % (Auto) 78.4, Lymph % (Auto) 15.3, [place] % (Auto) 4.4, Eos % (Auto) 1.0, Baso % (Auto) 1.0, Neut # (Auto) 11.0 H, Lymph # (Auto) 2.1, [place] # (Auto) 0.6, Eos # (Auto) 0.1, Baso # (Auto) 0.1 03/21/21 15:25: SARS-CoV-2 (PCR) Not detected, Influenza A Untype (PCR) Not detected, Influenza Type B (PCR) Not detected I & O for Last 24 hours: Intake & Output 03/19/21 03/20/21 03/21/21 03/22/21 11:59 11:59 11:59 11:59 Weight 165 lb - Constitutional no acute distress - *Routine HEENT Exam Head: Present: normocephalic Eye: Present: nystagmus ENT: Present: mucous membranes mo
--- NOTE | 2021-03-21 18:15 | P.PN_ITS ---
[facility] Anesthesia Checklist - Structural Data Admitted From: Inpatient Planned Operative Procedure/s: labor epidural Consent for Planned Operative Procedure(s) Verified: Yes - Airway Assessment C-Spine Mobility Assessed: Yes TMJ Mobility Assessed: Yes Dentition: Good Dentition - Neurological Assessment Level of Consciousness: Awake, Alert, Appropriate - Anesthesia Plan Anesthesia Risk discussed: Yes Anesthesia Plan: Verified ASA Class: II Anesthesia Type: Epidural [facility] History I have reviewed the patient's past medical history: Yes Medical History: Denies:: Diabetes Mellitus Type 1, Diabetes Mellitus Type 2 *Have you ever received a pneumonia vaccine?: No *Have you received a flu vaccine this season?: No Anesthesia experience/problems:: none Laterality Cases: Bilateral: Tonsillectomy Other Surgeries: No: Amputation: No Fractures: No - *Social History Smoking Status: Current every day smoker Tobacco Type: e-cigarettes # Packs/Day (cigarettes): 1 Alcohol Intake: never Alcohol Intake Frequency:: a few times a week Substance Use Type: marijuana *Occupational Status:: unemployed *Travel in the last 8 weeks: None Family Hx:: Cancer, Diabetes, Other Para: 0
--- NOTE | 2021-03-21 21:04 | PC.NURSE ---
OR team paged. Following calls were returned: Douglas 2051 Chloe 2052 Christian -message left at [phone] Dr. Alcala 2056 Christian-returned call at [phone]
--- NOTE | 2021-03-21 21:23 | HMH.LABNOT ---
Labor Note - Subjective: Date: 03/21/21 Time: 21:23 Comment:: Regular contractions Having repetitive late decelerations over past 40 minutes heart rate decelerations unresponsive to discontinuation of pitocin, maternal oxygen supplementation and changes in maternal position Cervix has unchanged during that time and is still 6cm Increasing edema of cervix and caput on vertex She has been counseled for immediate delivery via c section Informed consent obtained and all questions answered - Assessment: Patient Problems: All Active Problems Tobacco smoking complicating (Acute) Meconium in amniotic fluid (Acute) Positive urine drug screen (Acute) Anemia affecting (Acute) Prolonged rupture of membranes (Acute) 39 weeks gestation of (Acute) Nystagmus of right eye (Acute) Pain, dental (Acute) COVID-19 affecting in second trimester (Acute) (Acute) Viral upper respiratory illness (Acute) Alcohol use disorder (Acute) Leukocytosis (Acute) Amphetamine poisoning (Acute) Medical clearance for incarceration (Acute) Tendinitis of shoulder (Acute) Otitis media (Acute) Bacterial conjunctivitis (Acute) History of eye prosthesis (Acute) Tattoo reaction (Acute) Gastroenteritis (Acute) Contact dermatitis (Acute)
[2021-03-21 21:50] LABS: Cord Blood PH 7.43 (7.35-7.45)
--- NOTE | 2021-03-21 22:18 | HMH.OPNOTE ---
Date of procedure: 03/21/21 Pre-op Diagnosis:: 1. 39 4/7 weeks 2. Prolonged rupture of membranes 3. Meconium stained amniotic fluid 4. Repetitive late decelerations of heart rate 5. Maternal tobacco abuse 6. Maternal THC abuse Post-op Diagnosis:: same Procedure performed:: Primary Low Transverse C Section Surgeon:: Hayley Mendoza MD [employer] Specialist(s):: Pascual Alcala AUTOMATIC SCREWMAKER:: Christian Valentine Anesthesia: epidural Estimated blood loss (mL): 800 Operative findings:: Live born female infant with apgars of 7 (1 min) and 9 (5 min) Meconium stained amniotic fluid grossly normal uterus Operative note:: The patient was taken to the OR and adequate epidural anesthesia was confirmed. She was prepped and draped in normal sterile fashion. A pfannenstiel skin incision was made with the scalpel and carried down to the fascia. The fascia was incised in the midline and sharply dissected off the rectus muscles. The muscles were in the midline and the peritoneum was entered sharply and extended bluntly. The Roberto-O self retaining retractor was placed in the abdomen and a bladder flap was created. The uterus was incised in the lower uterine segment in a transverse fashion and extended bluntly. Amniotomy was performed and meconium stained amniotic fluid was noted. The infant was delivered in controlled fashion, without complication, nuchal cord or shoulder dystocia. The infant was immediately handed to awaiting delivery engineer and nursing staff for evaluation after cord was clamped and cut. Cord blood was collected for pH and a cord segment was preserved. The placenta was manually extracted and noted to be intact; the placenta was sent for pathologic examination. The uterus was repaired with 0-vicryl in a running/locked fashion in 2 layers. The bladder flap was closed with 2-0 vicryl in a running fashion. The peritoneum was closed with 2-0 vicryl in a running fashion. The fascia was closed with #1 vicryl in a running fashion. The subcutaneous fat was closed with 2-0 vicryl in an interrupted fashion. The skin was closed with jamee. The patient tolerated the procedure well. Sponge, lap, needle and instrument counts were correct x 2. TAP block was placed by anesthesia at conclusion of the procedure. The was taken back to labor and delivery and the mother was taken to the PACU awake and in stable condition. EBL: 800cc. Condition: stable Disposition: PACU Specimens:: Placenta to pathology Complications:: none
--- NOTE | 2021-03-21 22:28 | P.PN_ITS ---
[facility] Anesthesia Record Part I Intake, IV Amount: 1,500 Estimated blood loss (mL): 800 Urine output (mL): 700 Blood Pressure: 125/83 SaO2: 100 Pulse Rate: 80 Respiratory Rate: 12 Temperature: 99 F Patient is:: Awake, Stable Stable to PACU at:: 22:20
--- NOTE | 2021-03-21 22:53 | SUR.PHASEI ---
2248- detailed report called to benedicto kan on Ob floor. 2250- pt left in stable condition with benedicto kan on Ob floor
--- NOTE | 2021-03-21 22:59 | SUR.OPER ---
TOB- 2140 baby stat PH- 7.432
[2021-03-22 00:22] VITALS: BP 135/60; PULSE 73; RESP 18; TEMP 37; O2SAT 100
[2021-03-22 03:34] VITALS: BP 105/58; PULSE 68; RESP 17; TEMP 36.8; O2SAT 100
[2021-03-22 07:02] LABS: Hematocrit 30.4 % (37.0-47.0)
[2021-03-22 07:58] LABS: Hemoglobin 10.2 g/dL (12.2-16.2)
--- NOTE | 2021-03-22 08:07 | P.CONPHA_ITS ---
[facility] Pharmacy VTE Monitoring - Patient Demographics Admission date: 03/21/21 Report Date: 03/22/21 Time: 08:07 Allergies/Adverse Reactions: Patient Allergies Penicillins [PENICILLINS] Allergy (Unknown, Verified 03/19/21 12:07) Height: 1.7 m Weight: 74.843 kg Patient Problems: Current Active Problems Tobacco smoking complicating (Acute) Meconium in amniotic fluid (Acute) Positive urine drug screen (Acute) Anemia affecting (Acute) Prolonged rupture of membranes (Acute) 39 weeks gestation of (Acute) - VTE Risk Labs: VTE Related Lab Results Hgb 10.2 g/dL (12.2-16.2) L D 03/22/21 06:35 Hct 30.4 % (37.0-47.0) L 03/22/21 06:35 Plt Count 354 K/mm3 (142-424) 03/21/21 15:25 - Prophylaxis VTE Prophylaxis Ordered?: Yes Types of VTE Prophylaxis: IPCS Thigh High Location of Applied Device: Bilateral Lower Extremeties
--- NOTE | 2021-03-22 13:28 | HMH.ACPN2 ---
Internal Medicine - PN: Subj *Date: 03/22/21 *Time: 13:28 Interval history: POD #1 S/P urgent c section for repetitive late heart rate decelerations Baby is doing well since delivery Maternal status has been stable She is ambulating and voiding without difficulty She is tolerating a regular diet and po pain medication Lochia is appropriate in amount and she is asymptomatic with [id number] anemia Exam Vital signs and Labs for Last 24 Hours: Temp Pulse Resp BP Pulse Ox 98.2 F 68 17 105/58 L 100 03/22/21 03:34 03/22/21 03:34 03/22/21 03:34 03/22/21 03:34 03/22/21 03:34 Laboratory Results - last 24 hr 03/21/21 14:36: Urine Color Yellow, Urine Appearance Clear, Urine pH 8.0, Ur Specific [place] 1.015, Urine Protein Negative, Urine Glucose (UA) Negative, Urine Ketones Negative, Urine Blood Negative, Urine Nitrate Negative, Urine Bilirubin Negative, Urine Urobilinogen 0.2, Ur Leukocyte Esterase Trace, Urine RBC 3-5, Urine WBC 5-10, Ur Squamous Epith Cells 5-10, Urine Bacteria 1+ 03/21/21 14:36: Urine Opiates Screen Negative, Urine Methadone Screen Negative, Ur Barbituates Screen Negative, Ur Phencyclidine Scrn Negative, Ur Amphetamines Screen Negative, U Benzodiazepines Scrn Negative, Urine Cocaine Screen Negative, U Marijuana (THC) Screen Positive H 03/21/21 14:45: Membrane Rupture Positive A 03/21/21 15:25: WBC 14.1 H, RBC 3.95 L, Hgb 11.8 L, Hct 36.3 L, MCV 92.1, MCH 30.0, MCHC 32.5, RDW 13.4, Plt Count 354, MPV 8.3, Neut % (Auto) 78.4, Lymph % (Auto) 15.3, [place] % (Auto) 4.4, Eos % (Auto) 1.0, Baso % (Auto) 1.0, Neut # (Auto) 11.0 H, Lymph # (Auto) 2.1, [place] # (Auto) 0.6, Eos # (Auto) 0.1, Baso # (Auto) 0.1 03/21/21 15:25: SARS-CoV-2 (PCR) Not detected, Influenza A Untype (PCR) Not detected, Influenza Type B (PCR) Not detected 03/21/21 15:25: Blood Type A Positive, Antibody Screen Negative 03/21/21 21:49: Cord ABG pH 7.43 03/22/21 06:35: Hgb 10.2 L D, Hct 30.4 L I & O for Last 24 hours: Intake & Output 03/20/21 03/21/21 03/22/21 03/23/21 11:59 11:59 11:59 11:59 Intake Total 1500 / 1500 Output Total 700 / 700 Balance 800 / 800 Weight 165 lb Narrative: CONSTITUTIONAL: no acute distress HEENT: mucous membranes moist PULMONARY: breathing unlabored without audible wheezes CV: no tachycardia or visible JVD; normal LE peripheral pulses ABD: soft, ND; appropriately tender but no rebound/guarding : fundus firm below umbilicus SKIN: incision well approximated with no drainage, erythema or induration EXT: 1+ edema LEs NEURO: alert/oriented, no altered mental status PSYCH: appropriate mood and demeanor Assessment and Plan (1) 39 weeks gestation of Status: Acute Category: Medical Code(s): Z3A.39 - 39 weeks gestation of (2) Prolonged rupture of membranes Status: Acute Category: Medical Code(s): O42.90 - Premature rupture of membranes, unspecified as to length of time between rupture and onset of labor, unspecified weeks of gestation (3) Meconium in amniotic fluid Status: Acute Category: Medical Code(s): P96.83 - Meconium staining (4) Anemia affecting Status: Acute Category: Medical Code(s): O99.019 - Anemia complicating , unspecified trimester (5) Positive urine drug screen Status: Acute Category: Medical Code(s): R82.5 - Elevated urine levels of drugs, medicaments and biological substances (6) Tobacco smoking complicating Status: Acute Category: Medical Code(s): O99.330 - Smoking (tobacco) complicating , unspecified trimester (7) Acute blood loss anemia Status: Acute Category: Medical Code(s): D62 - Acute posthemorrhagic anemia - Assessment and plan all Dx Assessment and Plan for all problems:: Routine postop/ care Continue PNV and FeSO4 Anticipate discharge home tomorrow
[2021-03-23 04:20] VITALS: BP 106/61; PULSE 66; RESP 17; TEMP 36.7; O2SAT 98
--- NOTE | 2021-03-23 07:34 | P.PN_ITS ---
Internal Medicine - PN: Subj *Date: 03/23/21 *Time: 07:34 Interval history: She is postop day 2 from a primary lower segment transverse section. Her pain is well controlled. She is bottlefeeding. Baby is doing well. We will plan to send her home tomorrow. She needs to be seen by social services director today since she has been positive throughout her for marijuana. Exam Vital signs and Labs for Last 24 Hours: Temp Pulse Resp BP Pulse Ox 98.0 F 66 17 106/61 L 98 03/23/21 04:20 03/23/21 04:20 03/23/21 04:20 03/23/21 04:20 03/23/21 04:20 Laboratory Results - last 24 hr 03/22/21 06:35: Hgb 10.2 L D I & O for Last 24 hours: Intake & Output 03/20/21 03/21/21 03/22/21 03/23/21 11:59 11:59 11:59 11:59 Intake Total 1500 / 1500 Output Total 700 / 700 Balance 800 / 800 Weight 165 lb - Constitutional no acute distress - *Routine HEENT Exam Head: Present: normocephalic Eye: Present: EOMI, PERRL ENT: Present: mucous membranes moist Assessment and Plan (1) 39 weeks gestation of Status: Acute Category: Medical Code(s): Z3A.39 - 39 weeks gestation of (2) Prolonged rupture of membranes Status: Acute Category: Medical Code(s): O42.90 - Premature rupture of membranes, unspecified as to length of time between rupture and onset of labor, unspecified weeks of gestation (3) Meconium in amniotic fluid Status: Acute Category: Medical Code(s): P96.83 - Meconium staining (4) Anemia affecting Status: Acute Category: Medical Code(s): O99.019 - Anemia complicating , unspecified trimester (5) Positive urine drug screen Status: Acute Category: Medical Code(s): R82.5 - Elevated urine levels of drugs, medicaments and biological substances (6) Tobacco smoking complicating Status: Acute Category: Medical Code(s): O99.330 - Smoking (tobacco) complicating , unspecified trimester (7) Acute blood loss anemia Status: Acute Category: Medical Code(s): D62 - Acute posthemorrhagic anemia - Assessment and plan all Dx Assessment and Plan for all problems:: She continues to do well. We will plan to send her home tomorrow.
[2021-03-23 08:50] VITALS: BP 131/72; PULSE 75; RESP 16; TEMP 36.4; O2SAT 100
--- NOTE | 2021-03-23 09:38 | P.PN_ITS ---
[facility] Anesthesia Record Part II Discharge Time: 22:42 Destination: Obstetric PACU nurse assessment reviewed?: Yes Patient Condition:: Good Anesthesia Complications:: None Swallowing reflex intact?: Yes Cyanosis?: No Blood Pressure: 130/80 Pulse Rate: 75 Temperature: 97.8 F Mental Status: Alert & Oriented Pain level:: 0 Nausea and/or vomitting:: None Intake, IV Amount: 0
[2021-03-23 09:39] VITALS: BP 130/80; PULSE 75; TEMP 36.6
[2021-03-23 12:15] VITALS: BP 107/69; PULSE 64; RESP 18; TEMP 36.4
[2021-03-23 16:30] VITALS: BP 132/76; PULSE 68; RESP 16; TEMP 36.4
[2021-03-23 21:08] VITALS: BP 115/65; PULSE 66; RESP 18; TEMP 36.8; O2SAT 98
[2021-03-24 00:13] VITALS: BP 108/66; PULSE 68; RESP 18; TEMP 36.7
[2021-03-24 04:20] VITALS: BP 112/68; PULSE 64; RESP 18; TEMP 36.6; O2SAT 100
--- NOTE | 2021-03-24 06:27 | SW/DCPLANNER ---
Addendum entered by Kika Prince 03/24/21 10:17: CALLED [facility] THIS MORNING AND GAVE ID# [id number] AND THIS CASE WAS ACCEPTED FOR INVESTIGATION.. SOMEONE WILL BE HERE TO SEE PATIENT PRIOR TO HER DISCHARGING.. Original Note: RECEIVED REFERRAL ON THIS PATIENT THAT TESTED POSITIVE FOR THC AT TIME OF ADMISSION.. PATIENT PRESENTED INTO THE HOSPITAL AND DELIVERED A LIVE BORN FEMALE AND BOTH AND PATIENT WERE BOTH POSITIVE FOR THC ON UDS. PATIENT STATED SHE SMOKES IN THE EVENINGS TO SLEEP. SHE EVIDENTLY SMOKED EVERY NIGHT, SHE STATES SHE LIVES WITH HER SISTER AND WAS WORKING AT [employer] UNTIL SHE GOT CLOSE TO HER DUE DATE AND THEN SHE QUIT, HER PLANS ARE TO GO BACK TO WORK WHEN SHE IS ABLE TO, HER BABY WAS THE FIRST TO BE BORN IN THE NEW YEAR... SHE NAMED HER VINI AGUIAR.. SHE IS BOTTLE FEEDING AND STATES SHE GET WIC AND HAS EVERYTHING SHE NEEDS TO TAKE HER BABY HOME.. CARSEAT IN ROOM. PATIENT STATED HER SISTER HAS 2 CHILDREN AGES 3 AND 4 AND THEY HAVE PLENTY OF SLEEPERS, DIAPERS ETC., SHE SAID NOW THAT SHE ISN'T WORKING SHE IS GOING TO APPLY FOR [employer].. I DID MAKE CONTACT WITH [facility] [employer] SINCE SHE WAS POSITIVE AND MADE A REPORT. SPOKE WITH JCARLOS AND ID#[id number].. THE CORD WAS COLLECTED AND SENT OFF, IT WILL BE REPORTED ONCE IT REPORTS BACK.. PATIENT AND INFANT MAY DISCHARGE HOME TODAY IF CASE IS NOT ACCEPTED..
[2021-03-24 09:37] VITALS: BP 123/76; PULSE 80; RESP 16; TEMP 36.6; O2SAT 99
--- NOTE | 2021-03-24 09:37 | HMH.OBDCSM ---
General - General Admission date:: 03/21/21 Discharge date: 03/24/21 HPI - History of Present Illness History of present illness: She is a 20-year-old 1 para 0 at 39 and 4 weeks gestational age who came in in active labor. She thought she had rupture membranes the prior day. Hospital Course Hospital Course: She progressed to 6 cm and was having some late decelerations. As result of that we elected to perform a primary lower segment transverse section. She delivered a liveborn female child at 9:43 PM in the evening of March 21, 2021. The baby weighed 7 pounds 1 ounce and had Apgars of 7 at 1 minute and 9 at 5 minutes. She has done well and has remained afebrile throughout her hospitalization. She is eating and drinking and ambulating. She is bottlefeeding. Her lochia is normal. She has a Rh+ blood, she is rubella immune and was group B streptococcus negative. She is discharged home to follow-up with me in approximately 2 weeks time. She was given the usual instructions with respect to limiting her activity, driving and sexual activity. She was given instructions with respect to wound care. She will be seen by social media developer prior to discharge since she was positive for marijuana throughout the entire . Her condition on discharge is stable and improved. Rhogam Administration: Not Indicated Objective Vital signs: Temp Pulse Resp BP Pulse Ox 97.9 F 64 18 112/68 100 03/24/21 04:20 03/24/21 04:20 03/24/21 04:20 03/24/21 04:20 03/24/21 04:20 no acute distress - *Routine HEENT Exam Head: Present: normocephalic Eye: Present: EOMI, PERRL ENT: Present: mucous membranes moist - *Routine Neck Exam Present: supple - *Routine Abdominal Exam Present: soft, normoactive bowel sounds. Absent: tenderness DS: Diagnosis - Discharge Diagnosis (1) 39 weeks gestation of Status: Acute (2) Prolonged rupture of membranes Status: Acute (3) Meconium in amniotic fluid Status: Acute (4) Anemia affecting Status: Acute (5) Positive urine drug screen Status: Acute (6) Tobacco smoking complicating Status: Acute (7) Acute blood loss anemia Status: Acute Discharge Plan - Patient Discharge Instructions ACTIVITY: No heavy lifting DIET: continue same diet Additional Instructions: *Nothing in the Vagina for 6 weeks* *No heavy lifting* *No strenuous activity* Patient Instructions: Depression, Hemorrhage, DI for , DI for Pre-eclampsia, [facility] Post Discharge Instructions, Preventing the Spread of Coronavirus Discharge Instructions - Follow up Plan Follow up with: Abdi Pastrana MD [Staff Physician] - Disposition: Home, Self-Care Condition at discharge:: Stable Home Medications: Home Medications Medication Instructions Recorded Confirmed Type prenat.vits,ashley,ejk-elba-zsbwc 1 tab PO DAILY 08/12/20 03/21/21 History Ferrous Sulfate 325 mg PO DAILY 03/21/21 03/21/21 History Oxycodone HCl/Acetaminophen 1 tab PO Q4-6H PRN #12 tablet 03/24/21 Rx [Percocet 5/325mg tablet] Prescriptions/Medication Reconciliation: New Oxycodone HCl/Acetaminophen [Percocet 5/325mg tablet] 1 tab PO Q4-6H PRN #12 tablet PRN Reason: Severe Pain Continued prenat.vits,ashley,epj-qicj-otlyd 1 tab PO DAILY Ferrous Sulfate 325 mg PO DAILY - Problem Reconciliation Problems Reviewed?: Yes
== END 2021-03-24 12:00 | disposition home or self-care (01) | DRG 787 ==
LOC: OBOUT 16:37 → OB 16:37
PROVIDERS: Admitting Provider Obstetrics & Gynecology; Referring Provider Nurse Practitioner Obstetrics & Gynecology; Visit Provider Nurse Practitioner Obstetrics & Gynecology
PROC: 10D00Z1 Extraction of Products of Conception, Low, Open Approach (ICD-10-PCS; CPT 59514; principal; 2021-03-21 21:00)
DX: O36.8330 Maternal care for abnormalities of the fetal heart rate or rhythm, third trimester, not applicable or unspecified (principal); O99.323 Drug use complicating pregnancy, third trimester; Z3A.39 39 weeks gestation of pregnancy; Z37.0 Single live birth; F12.10 Cannabis abuse, uncomplicated; O99.333 Smoking (tobacco) complicating pregnancy, third trimester; F17.210 Nicotine dependence, cigarettes, uncomplicated
CPT/HCPCS: 59514; 59025; 80305; 81001; 82800; 84112; 85014; 85018; 85025; 86850; 88307; 94761; C1758; C9803; G0283; U0003; U0005

== ENCOUNTER 2021-08-03 22:24 | Observation (INO) | payer OTHER, SELFPAY ==
[2021-08-03 22:41] VITALS: BP 138/73; PULSE 85; RESP 18; TEMP 36.9; O2SAT 99; BMI 22.4
[2021-08-03 22:42] VITALS: BMI 22.4
--- NOTE | 2021-08-03 22:43 | CT_ITS ---
PROCEDURE INFORMATION: Exam: CT Abdomen And Pelvis With Contrast Exam date and time: 08/03/2021 11:13 PM Age: 21 years old Clinical indication: Nausea; Abdominal pain; Localized; Right lower quadrant (rlq); Prior surgery; Surgery date: 1-6 months; Surgery type: C section 4 months ago; Additional info: Abd pain TECHNIQUE: Imaging protocol: Computed tomography of the abdomen and pelvis with contrast. Radiation optimization: All CT scans at this facility use at least one of these dose optimization techniques: automated exposure control; mA and/or kV adjustment per patient size (includes targeted exams where dose is matched to clinical indication); or iterative reconstruction. Contrast material: ISOVUE; Contrast volume: 75 ml; Contrast route: IV; COMPARISON: US OB FOLLOW UP 02/17/2021 1:38 PM FINDINGS: Liver: Normal. No mass. Gallbladder and bile ducts: Normal. No calcified stones. No ductal dilation. Pancreas: Normal. No ductal dilation. Spleen: Normal. No splenomegaly. Adrenal glands: Normal. No mass. Kidneys and ureters: Kidneys enhance symmetrically and demonstrate no evidence of mass, calculus, obstruction, or inflammation. Stomach and bowel: Unremarkable. No obstruction. No mucosal thickening. Appendix: No evidence of appendicitis. Intraperitoneal space: No free air. No peritoneal tumor nodules are appreciated. Trace free fluid noted in the peritoneal cavity. Vasculature: This solid component is peripheral and lobulated, and demonstrates numerous large feeding vessels. Lymph nodes: No adenopathy. Urinary bladder: Unremarkable as visualized. Reproductive: In the central pelvis there is a 15.9 x 13.4 x 15.7 cm cystic and solid mass. Gonadal vessels do not definitely track from the mass on either side. Lesion is separate from the uterus. The right ovary appears situated in the posterior pelvis. Left ovary appears to be adjacent to the uterine fundus with gonadal vessels displaced laterally. Bones/joints: No destructive bony lesions. Soft tissues: Unremarkable. IMPRESSION: There is a large indeterminate central pelvic mass. Each ovary appears present, but the lesion could be contiguous with either ovary. Lesion demonstrates both solid and cystic components, and is worrisome for malignancy. Differential considerations include primary peritoneal carcinoma or mesenteric fibromatosis. Recommend MICROBIOLOGY SOIL SCIENTIST consultation.
[2021-08-03 22:48] LABS: Microscopic, Urine URINE MICROSCOPIC (MICROSCOPIC)
[2021-08-03 22:54] LABS: Appearance,Urine CLEAR (Clear); Bilirubin,Urine Negative (Negative); Blood, Urine Negative (Negative); Color,Urine YELLOW (Yellow); Glucose,Urine (UA) Negative (Negative); Ketones,Urine Negative (Negative); Leukocyte Esterase,Urine Negative (Negative); Nitrate,Urine Negative (Negative); PH,Urine 6.5 (5.0-8.5); Protein,Urine Negative (Negative); Specific Gravity, Urine 1.015 (1.005-1.030); Urobilinogen,Urine 0.2 EU/dl (0.2)
--- NOTE | 2021-08-03 22:57 | HMH.EDNVD ---
ED Disposition Clinical Impression: Pelvic mass in female, Hypercalcemia Disposition: Admitted As Inpatient Condition on Discharge: Good - Critical Care Critical Care Time: No Attestation: On 08/03/21, the high probability of a clinically significant, sudden or life threatening deterioration of the following system(s) required my full and direct attention, intervention and personal management. The time I documented below is in addition to time spent performing reported procedures but includes the following listed in this critical care notation. Medical Decision Making - Medical Records Medical records reviewed: Yes: I reviewed the patient's medical records. - Kelvin Inquiry Pt receiving controlled substance: No Vital Signs: 08/03/21 22:41 Temperature 98.4 F Temperature Source Oral Pulse Rate [Apical] 85 Respiratory Rate 18 Blood Pressure [Right Arm] 138/73 Blood Pressure Mean [Right Arm] 94 Blood Pressure Source [Right Arm] Automatic Cuff Blood Pressure Position [Right Arm] Sitting 02 Sat by Pulse Oximetry 99 Oxygen Delivery Method Room Air - Lab Data Lab results reviewed: Yes: I reviewed the patient's lab results. Lab Results 08/03/21 22:42: Urine Color Yellow, Urine Appearance Clear, Urine pH 6.5, Ur Specific [place] 1.015, Urine Protein Negative, Urine Glucose (UA) Negative, Urine Ketones Negative, Urine Blood Negative, Urine Nitrate Negative, Urine Bilirubin Negative, Urine Urobilinogen 0.2, Ur Leukocyte Esterase Negative, Urine WBC Occasional, Amorphous Sediment 1+, Urine Bacteria Trace 08/03/21 22:42: Urine HCG, Qual Negative 08/03/21 23:00: WBC 8.9, RBC 4.37, Hgb 12.8, Hct 39.2, MCV 89.8, MCH 29.4, MCHC 32.7, RDW 14.6, Plt Count 353, MPV 7.8, Neut % (Auto) 55.5, Lymph % (Auto) 28.7, [place] % (Auto) 6.9, Eos % (Auto) 6.4, Baso % (Auto) 2.5 H, Neut # (Auto) 4.9, Lymph # (Auto) 2.6, [place] # (Auto) 0.6, Eos # (Auto) 0.6 H, Baso # (Auto) 0.2, ESR 19 08/03/21 23:00: Sodium 139, Potassium 3.7, Chloride 106, Carbon Dioxide 30, Anion Gap 6.7, BUN 13, Creatinine 0.60, Estimated Creat Clear 149, Estimated GFR 124, Est GFR ( Amer) 150, Glucose 104 H, Calcium 12.6 H*, Total Bilirubin < 0.1 L, AST 29, ALT 16, Alkaline Phosphatase 69, Troponin I < 0.01, C-Reactive Protein 1.1, Total Protein 6.8, Albumin 3.9, Globulin 2.9, Albumin/Globulin Ratio 1.3, Amylase 68, Lipase 94 08/03/21 23:00: TSH 4.67, Thyroxine (T4) 6.9 Result diagrams: 08/03/21 23:00 08/03/21 23:00 Orders (Tests/Meds): ED MEDICATIONS Generic Name Dose Route Start Last Admin Trade Name Freq PRN Reason Stop Dose Admin Sodium Chloride 1,000 mls @ 999 mls/hr 08/03/21 22:45 08/03/21 23:16 Sod Chlor 0.9% 1000ml Bag IV 08/03/21 23:45 999 mls/hr .Q1H1M EILEEN Administration Sodium Chloride 8 ml 08/03/21 22:44 Sodium Chloride 0.9% 10ml Vial IV 09/02/21 22:43 NEEDED PRN dilute pepcid Discontinued Medications Generic Name Dose Route Start Last Admin Trade Name Freq PRN Reason Stop Dose Admin Famotidine 20 mg 08/03/21 22:44 08/03/21 23:15 Famotidine 20mg/2ml Vial IV 08/03/21 22:45 20 mg ONCE ONE Administration Iopamidol 75 ml 08/03/21 23:22 08/03/21 23:23 Iopamidol-370 (76%);100ml Bottle IV 08/03/21 23:23 75 ml ONCE ONE Administration Ketorolac Tromethamine 30 mg 08/03/21 22:44 08/03/21 23:15 Ketorolac 30mg/Ml Vial IV 08/03/21 22:45 30 mg ONCE ONE Administration Metoclopramide HCl 10 mg 08/03/21 22:44 08/03/21 23:15 Metoclopramide Hcl 10mg/2ml Vial IVP 08/03/21 22:45 10 mg ONCE ONE Administration Ondansetron HCl 4 mg 08/03/21 22:44 08/03/21 23:15 Ondansetron 4mg/2ml Vial IV 08/03/21 22:45 4 mg ONCE ONE Administration Sodium Chloride 10 ml 08/03/21 23:22 08/03/21 23:23 Sodium Chloride 0.9% 10ml Syr (Rad Only) IV 08/03/21 23:23 10 ml ONCE ONE Administration ORDERS Category Date Time Status Troponin I Q3H Lab 08/04/21 02:00 Ordered Troponin
[2021-08-03 22:59] LABS: Urine Pregnancy, HCG Qual. Negative (Negative)
[2021-08-03 23:06] LABS: Amorphous Sediment,Urine 1+ /lpf; Bacteria,Urine Trace /lpf; WBC,Urine Occasional #/hpf (0-3)
--- NOTE | 2021-08-03 23:12 | ECG_ITS ---
APPROVED REPORT Exam: Resting ECG HR:65 bpm ECG Measurements Heart Rate 65 AXES HI 138 P 67 QRSd 99 QRS 97 QT 350 T 60 QTc 362 Conclusion SINUS RHYTHM WITH SINUS ARRHYTHMIA BORDERLINE RIGHT AXIS DEVIATION [QRS AXIS > 90] BORDERLINE ECG UNCONFIRMED REPORT Electronically signed by : Renny Tomas MD 08/04/2021 21:27:05
[2021-08-03 23:14] LABS: Basophils # 0.2 K/mm3 (0-0.2); Basophils % 2.5 % (0.1-2.0); Eosinophils # 0.6 K/mm3 (0.0-0.4); Eosinophils % 6.4 % (0.1-12.0); Hematocrit 39.2 % (37.0-47.0); Hemoglobin 12.8 g/dL (12.2-16.2); Lymphocytes # 2.6 K/mm3 (0.7-4.5); Lymphocytes % 28.7 % (10-50); Mean Corpuscular HGB Conc 32.7 g/dL (31.8-35.4); Mean Corpuscular Hemoglobin 29.4 pg (27.0-31.2); Mean Corpuscular Volume 89.8 fl (81-99); Mean Platelet Volume 7.8 fl (7.4-10.4); Monocytes # 0.6 K/mm3 (0.1-1.0); Monocytes % 6.9 % (1.7-9.3); Neutrophils # 4.9 K/mm3 (1.8-7.8); Neutrophils % 55.5 % (37.0-80.0); Platelet Count 353 K/mm3 (142-424); Red Blood Count 4.37 M/mm3 (4.20-5.40); Red Cell Distribution Width 14.6 % (11.5-17.5); White Blood Count 8.9 K/mm3 (4.8-10.8)
[2021-08-03 23:25] LABS: Alanine Aminotransferase 16 U/L (12-78); Albumin Level 3.9 g/dl (3.5-5.0); Albumin/Globulin Ratio 1.3 (1.1-1.8); Alkaline Phosphatase 69 U/L (38-126); Amylase 68 U/L (30-110); Anion Gap 6.7 mEq/L (5-15); Aspartate Amino Transferase 29 U/L (14-36); Blood Urea Nitrogen 13 mg/dl (7-17); Carbon Dioxide 30 mmol/L (22.0-30.0); Chloride 106 mmol/L (98-107); Creatinine Clearance Estimated 149 mL/min (50-200); Estimated Glomerular Filt Rate 124 ml/min (>60); GFR (African American) 150 ML/MIN (>60); Globulin 2.9 g/dL (1.3-3.2); Glucose 104 mg/dl (74-100); Lipase 94 U/L (23-300); Potassium 3.7 mmoL/L (3.5-5.1); Sodium 139 mmol/L (136-145); Total Protein,Serum 6.8 g/dl (6.3-8.2)
[2021-08-03 23:30] LABS: C-Reactive Protein 1.1 mg/L (0-4)
[2021-08-03 23:37] LABS: Bilirubin,Total < 0.1 mg/dl (0.2-1.3)
[2021-08-03 23:38] LABS: Calcium 12.6 mg/dl (8.4-10.2)
[2021-08-03 23:39] LABS: Troponin I < 0.01 ng/ml (0.00-0.034)
--- NOTE | 2021-08-03 23:40 | PC.NURSE ---
Critical calcium of 12.6 called from lab. notified.
[2021-08-03 23:45] LABS: Erythrocyte Sedimentation Rate 19 mm/hr (0-20)
[2021-08-04 00:15] LABS: T4 (Thyroxine) 6.9 ug/dl (5.53-11.0)
--- NOTE | 2021-08-04 00:25 | PC.NURSE ---
Spoke with house training administrator, patients is allowed to stay in her room with her partner under the distinct instructions that the partner is to be responsible for all care of the infant and is not allowed to leave the child in it's mothers care prior to mothers discharge as mother is to be looked at as a patient.
[2021-08-04 00:26] LABS: Thyroid Stimulating Hormone 4.67 uIU/mL (0.465-4.68)
[2021-08-04 00:29] LABS: Coronavirus 19, PCR Not Detected (NotDetected); Influenza A, PCR Not Detected (NotDetected); Influenza B, PCR Not Detected (NotDetected)
[2021-08-04 01:04] VITALS: BP 107/58; PULSE 68; RESP 18; TEMP 36.9; O2SAT 98
[2021-08-04 01:20] VITALS: BP 104/79; PULSE 72; RESP 18; TEMP 36.5; O2SAT 98
[2021-08-04 01:58] VITALS: BMI 22.4
--- NOTE | 2021-08-04 05:58 | PC.NURSE ---
Pt has rested well this shift. No acute changes from previous assessment. VSS
[2021-08-04 06:11] LABS: Basophils # 0.1 K/mm3 (0-0.2); Basophils % 1.6 % (0.1-2.0); Eosinophils # 0.5 K/mm3 (0.0-0.4); Eosinophils % 7.1 % (0.1-12.0); Hematocrit 39.4 % (37.0-47.0); Hemoglobin 12.5 g/dL (12.2-16.2); Lymphocytes # 2.5 K/mm3 (0.7-4.5); Mean Corpuscular HGB Conc 31.6 g/dL (31.8-35.4); Mean Corpuscular Hemoglobin 28.8 pg (27.0-31.2); Mean Corpuscular Volume 91.2 fl (81-99); Mean Platelet Volume 7.6 fl (7.4-10.4); Monocytes # 0.5 K/mm3 (0.1-1.0); Monocytes % 7.3 % (1.7-9.3); Neutrophils # 3.8 K/mm3 (1.8-7.8); Platelet Count 324 K/mm3 (142-424); Red Blood Count 4.33 M/mm3 (4.20-5.40); Red Cell Distribution Width 14.6 % (11.5-17.5); White Blood Count 7.4 K/mm3 (4.8-10.8)
[2021-08-04 06:28] LABS: Alanine Aminotransferase 16 U/L (12-78); Albumin Level 3.6 g/dl (3.5-5.0); Albumin/Globulin Ratio 1.3 (1.1-1.8); Alkaline Phosphatase 71 U/L (38-126); Anion Gap 6.9 mEq/L (5-15); Aspartate Amino Transferase 28 U/L (14-36); Blood Urea Nitrogen 11 mg/dl (7-17); Calcium 11.6 mg/dl (8.4-10.2); Carbon Dioxide 29 mmol/L (22.0-30.0); Chloride 107 mmol/L (98-107); Creatinine Clearance Estimated 149 mL/min (50-200); Estimated Glomerular Filt Rate 124 ml/min (>60); GFR (African American) 150 ML/MIN (>60); Globulin 2.8 g/dL (1.3-3.2); Glucose 101 mg/dl (74-100); Potassium 3.9 mmoL/L (3.5-5.1); Sodium 139 mmol/L (136-145); Total Protein,Serum 6.4 g/dl (6.3-8.2)
[2021-08-04 06:31] LABS: Bilirubin,Total < 0.1 mg/dl (0.2-1.3)
--- NOTE | 2021-08-04 07:30 | US_ITS ---
FINAL REPORT TECHNIQUE: Transabdominal and transvaginal images of the pelvis were obtained. CLINICAL HISTORY: pelvic mass COMPARISON: Abdomen and pelvis CT dated August 03, 2021 FINDINGS: The uterus measures 8.0 x 5.4 x 3.3 cm. The endometrium measures 1.4 cm. The right ovary measures up to 3.3 cm with a 1.4 cm probable cyst. The left ovary is not well visualized but measures up to 3.5 cm. There is a questionable 2 cm left ovarian cyst. A large mass superior to the uterus measures up to approximately 16 cm. This mass is cystic and solid and abuts the uterus and both ovaries. This is favored to be separate from the uterus and right ovary but could be left ovarian in origin. Mass is most worrisome for neoplasm. IMPRESSION: Large pelvic mass which could be left ovarian in origin is most worrisome for neoplasm. This could represent primary ovarian neoplasm or other neoplasm. Reviewed, Interpreted and Dictated by Porter Horta III, MD Transcribed by Rick Galvez Authenticated by Porter Horta III, MD on 08/04/2021 09:25:30 AM [facility]
--- NOTE | 2021-08-04 07:48 | PC.NURSE ---
Pt. to U/S via wheelchair, accompanied by radiology staff.
[2021-08-04 08:40] VITALS: O2SAT 98
[2021-08-04 08:53] VITALS: BP 118/82; PULSE 77; RESP 16; TEMP 36.7; O2SAT 98
--- NOTE | 2021-08-04 09:25 | HMH.HP ---
*Admission Date: 08/04/21 *Chief complaint: Right lower quadrant mass, right lower quadrant pain *History of present illness: She is a 21-year-old 1 now para 1 who was about 5 months from a . She complains of increasing right lower quadrant pain over the last 2 days and came into the ER last night with severe right lower quadrant pain. She says she is noted some swelling on the right side. [facility] History I have reviewed the patient's past medical history: Yes Medical History: Denies:: Diabetes Mellitus Type 1, Diabetes Mellitus Type 2 *Have you ever received a pneumonia vaccine?: No *Have you received a flu vaccine this season?: No Laterality Cases: Bilateral: Tonsillectomy Other Surgeries: Yes: Amputation: No Fractures: No - *Social History Smoking Status: Current every day smoker Tobacco Type: e-cigarettes # Packs/Day (cigarettes): 1 Alcohol Intake: never Alcohol Intake Frequency:: a few times a week Substance Use Type: marijuana *Occupational Status:: unemployed *Travel in the last 8 weeks: None Family Hx:: Cancer, Diabetes, Other Review of Systems - Review of Systems Review of systems:: pertinent systems reviewed and negative unless documented below - *Neurologic Denies seizure-like activity Meds Home Medications Medication Instructions Recorded Confirmed Type No Known Home Medications 08/03/21 08/03/21 History Allergies Allergy/AdvReac Type Severity Reaction Status Date / Time Penicillins [PENICILLINS] Allergy Unknown Verified 04/06/21 15:47 Exam Vital signs and Labs for Last 24 Hours: Temp Pulse Resp BP Pulse Ox 98.1 F 77 16 118/82 98 08/04/21 08:53 08/04/21 08:53 08/04/21 08:53 08/04/21 08:53 08/04/21 08:53 Laboratory Results - last 24 hr 08/03/21 22:42: Urine Color Yellow, Urine Appearance Clear, Urine pH 6.5, Ur Specific [place] 1.015, Urine Protein Negative, Urine Glucose (UA) Negative, Urine Ketones Negative, Urine Blood Negative, Urine Nitrate Negative, Urine Bilirubin Negative, Urine Urobilinogen 0.2, Ur Leukocyte Esterase Negative, Urine WBC Occasional, Amorphous Sediment 1+, Urine Bacteria Trace 08/03/21 22:42: Urine HCG, Qual Negative 08/03/21 23:00: WBC 8.9, RBC 4.37, Hgb 12.8, Hct 39.2, MCV 89.8, MCH 29.4, MCHC 32.7, RDW 14.6, Plt Count 353, MPV 7.8, Neut % (Auto) 55.5, Lymph % (Auto) 28.7, [place] % (Auto) 6.9, Eos % (Auto) 6.4, Baso % (Auto) 2.5 H, Neut # (Auto) 4.9, Lymph # (Auto) 2.6, [place] # (Auto) 0.6, Eos # (Auto) 0.6 H, Baso # (Auto) 0.2, ESR 19 08/03/21 23:00: Sodium 139, Potassium 3.7, Chloride 106, Carbon Dioxide 30, Anion Gap 6.7, BUN 13, Creatinine 0.60, Estimated Creat Clear 149, Estimated GFR 124, Est GFR ( Amer) 150, Glucose 104 H, Calcium 12.6 H*, Total Bilirubin < 0.1 L, AST 29, ALT 16, Alkaline Phosphatase 69, Troponin I < 0.01, C-Reactive Protein 1.1, Total Protein 6.8, Albumin 3.9, Globulin 2.9, Albumin/Globulin Ratio 1.3, Amylase 68, Lipase 94 08/03/21 23:00: TSH 4.67, Thyroxine (T4) 6.9 08/03/21 23:40: SARS-CoV-2 (PCR) Not detected, Influenza A Untype (PCR) Not detected, Influenza Type B (PCR) Not detected 08/04/21 05:48: WBC 7.4, RBC 4.33, Hgb 12.5, Hct 39.4, MCV 91.2, MCH 28.8, MCHC 31.6 L, RDW 14.6, Plt Count 324, MPV 7.6, Neut % (Auto) 51.0, Lymph % (Auto) 33.0, [place] % (Auto) 7.3, Eos % (Auto) 7.1, Baso % (Auto) 1.6, Neut # (Auto) 3.8, Lymph # (Auto) 2.5, [place] # (Auto) 0.5, Eos # (Auto) 0.5 H, Baso # (Auto) 0.1 08/04/21 05:48: Sodium 139, Potassium 3.9, Chloride 107, Carbon Dioxide 29, Anion Gap 6.9, BUN 11, Creatinine 0.60, Estimated Creat Clear 149, Estimated GFR 124, Est GFR ( Amer) 150, Glucose 101 H, Calcium 11.6 H, Total Bilirubin < 0.1 L, AST 28, ALT 16, Alkaline Phosphatase 71, Total Protein 6.4, Albumin 3.6, Globulin 2.8, Albumin/Globulin Ratio 1.3 I & O for Last 24 hours: Intake & Output 08/01/21 08/02/21 08/03/21 08/04/21 11:59 11:59 11:59 11:59 Weight 143 lb - Constitutional n
--- NOTE | 2021-08-04 09:48 | HMH.DCSUM ---
General - General Admission date:: 08/04/21 Discharge date: 08/04/21 HPI HPI: She is a 21-year-old 1 now para 1 who was about 5 months from a . She complains of increasing right lower quadrant pain over the last 2 days and came into the ER last night with severe right lower quadrant pain. She says she is noted some swelling on the right side. Hospital Course Hospital Course: She had a CT scan in the emergency department that showed a solid cystic 15 cm mass in the pelvis. The seem to be separate from the ovaries and the uterus. Ultrasound also showed this 15 to 16 cm mass in the pelvis separate from the uterus and ovaries. The mass seems to be to the right side. Its not clear whether this is a ovarian mass or peritoneal or even mesenteric mass. It seems to be well-circumscribed and has both solid and cystic components. It is easily palpated abdominally. It is tender to palpate. She has no peritoneal signs. I spoke with Dr. Megan Comer at the [facility], gynecologic oncology department and we will transfer Janki to Dr. Comer's care. I am concerned she may have a sarcoma or other carcinoma. She is medically stable although she had increased calcium last night. This seems to have resolved this morning. She is high normal for her calcium level. She has not been requiring much in the way of narcotics since last night but she was quite uncomfortable last night on arrival in the emergency department. Objective Vital signs: Temp Pulse Resp BP Pulse Ox 98.1 F 77 16 118/82 98 08/04/21 08:53 08/04/21 08:53 08/04/21 08:53 08/04/21 08:53 08/04/21 08:53 no acute distress - *Routine HEENT Exam Head: Present: normocephalic Eye: Present: EOMI, PERRL ENT: Present: mucous membranes moist Results Labs on day of discharge: Labs from last 24 hours 08/04/21 08/04/21 08/03/21 05:48 05:48 23:40 WBC 7.4 RBC 4.33 Hgb 12.5 Hct 39.4 MCV 91.2 MCH 28.8 MCHC 31.6 L RDW 14.6 Plt Count 324 MPV 7.6 Neut % (Auto) 51.0 Lymph % (Auto) 33.0 [place] % (Auto) 7.3 Eos % (Auto) 7.1 Baso % (Auto) 1.6 Neut # (Auto) 3.8 Lymph # (Auto) 2.5 [place] # (Auto) 0.5 Eos # (Auto) 0.5 H Baso # (Auto) 0.1 ESR Sodium 139 Potassium 3.9 Chloride 107 Carbon Dioxide 29 Anion Gap 6.9 BUN 11 Creatinine 0.60 Estimated Creat Clear 149 Estimated GFR 124 Est GFR ( Amer) 150 Glucose 101 H Calcium 11.6 H Total Bilirubin < 0.1 L AST 28 ALT 16 Alkaline Phosphatase 71 Troponin I C-Reactive Protein Total Protein 6.4 Albumin 3.6 Globulin 2.8 Albumin/Globulin Ratio 1.3 Amylase Lipase TSH Thyroxine (T4) Urine Color Urine Appearance Urine pH Ur Specific [place] Urine Protein Urine Glucose (UA) Urine Ketones Urine Blood Urine Nitrate Urine Bilirubin Urine Urobilinogen Ur Leukocyte Esterase Urine WBC Amorphous Sediment Urine Bacteria Urine HCG, Qual SARS-CoV-2 (PCR) Not detected Influenza A Untype (PCR) Not detected Influenza Type B (PCR) Not detected 08/03/21 08/03/21 08/03/21 23:00 23:00 23:00 WBC 8.9 RBC 4.37 Hgb 12.8 Hct 39.2 MCV 89.8 MCH 29.4 MCHC 32.7 RDW 14.6 Plt Count 353 MPV 7.8 Neut % (Auto) 55.5 Lymph % (Auto) 28.7 [place] % (Auto) 6.9 Eos % (Auto) 6.4 Baso % (Auto) 2.5 H Neut # (Auto) 4.9 Lymph # (Auto) 2.6 [place] # (Auto) 0.6 Eos # (Auto) 0.6 H Baso # (Auto) 0.2 ESR 19 Sodium 139 Potassium 3.7 Chloride 106 Carbon Dioxide 30 Anion Gap 6.7 BUN 13 Creatinine 0.60 Estimated Creat Clear 149 Estimated GFR 124 Est GFR ( Amer) 150 Glucose 104 H Calcium 12.6 H* Total Bilirubin < 0.1 L AST 29 ALT 16 Alkaline Phosphatase 69
--- NOTE | 2021-08-04 12:34 | PC.NURSE ---
10:00: Spoke with . Report given to bed assurance sourcing manager on pt. VS, Covid status and birthday. V/U. Reports they will call us when they have a bed available. Nurse V/U.
[2021-08-04 16:16] VITALS: BP 106/55; PULSE 59; RESP 18; TEMP 36.6; O2SAT 100
--- NOTE | 2021-08-04 16:22 | PC.NURSE ---
Routine reassessment completed. No acute changes from previous assessment. Palpable mass to RLQ noted. Pt. rates pain at 4/10. and reports anxiety better from earlier. Pt. denies needs, will continue to monitor.
[2021-08-04 20:00] VITALS: BP 118/60; PULSE 76; RESP 16; TEMP 36.8; O2SAT 99
--- NOTE | 2021-08-04 21:40 | PC.NURSE ---
REPORT CALLED TO CLARA OJEDA AT [facility].
--- NOTE | 2021-08-04 22:10 | PC.NURSE ---
[facility] ARRIVED TO TAKE PT TO AT THIS TIME.
--- NOTE | 2021-08-04 22:15 | PC.NURSE ---
PT OFF UNIT PER EMS AT THIS TIME.
== END 2021-08-04 22:15 | disposition short-term general hospital (02) ==
LOC: ER 22:30 → OB 08-04 00:44
PROVIDERS: Admitting Provider Nurse Practitioner Obstetrics & Gynecology; Emergency Provider Emergency Medicine; Visit Provider Nurse Practitioner Obstetrics & Gynecology
DX: R19.00 Intra-abdominal and pelvic swelling, mass and lump, unspecified site (principal); E83.52 Hypercalcemia; R10.31 Right lower quadrant pain; Z20.822 Contact with and (suspected) exposure to COVID-19
CPT/HCPCS: 36415; 74177; 76856; 80053; 81001; 81025; 82150; 83690; 84436; 84443; 84484; 85025; 85651; 86140; 93005; 96375; 99285; C9803; G0378; J2405; Q9967; U0003; U0005

== ENCOUNTER 2025-01-27 12:17 | Emergency (ER) | payer SELFPAY ==
[2025-01-27] VITALS (12 sets, daily range): BP systolic 94–126; BP diastolic 57–90; PULSE 65–111; RESP 14–20; TEMP 36.3–37; O2SAT 96–100; BMI 19.5
[2025-01-27 12:31] LABS: Microscopic, Urine URINE MICROSCOPIC (MICROSCOPIC)
[2025-01-27 12:37] LABS: Bilirubin,Urine Negative (Negative); Color,Urine YELLOW (Yellow); Glucose,Urine (UA) Negative (Negative); Ketones,Urine Negative (Negative); Leukocyte Esterase,Urine Negative (Negative); PH,Urine 6.5 (5.0-8.5); Protein,Urine Negative (Negative); Specific Gravity, Urine 1.025 (1.005-1.030); Urobilinogen,Urine 0.2 EU/dl (0.2)
[2025-01-27 12:41] LABS: Urine Pregnancy, HCG Qual. Negative (Negative)
--- NOTE | 2025-01-27 12:55 | US_ITS ---
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 Transvaginal imaging was used for better evaluation of the endometrium, adnexa, and/or cervix. COMPARISON: US PELVIC 08/04/2021 7:54 AM FINDINGS: Uterus: Uterus is normal. Measures 8.1 x 3.6 x 5.0 cm. Endometrial stripe is normal. Measures 0.4 cm. Right ovary/adnexa: Normal. Measures 3.6 x 2.5 x 1.8 cm. No mass. Normal ovarian blood flow on color Doppler. Left ovary/adnexa: Surgically absent. Urinary bladder: Urinary bladder is limited. Intraperitoneal space: No free fluid. IMPRESSION: No acute findings.
[2025-01-27 13:01] LABS: Hematocrit 38.9 % (37.0-47.0); Hemoglobin 13.2 g/dL (12.2-16.2); Immature Granulocytes % 0.2 %; Mean Corpuscular HGB Conc 33.9 g/dL (31.8-35.4); Mean Corpuscular Hemoglobin 30.1 pg (27.0-31.2); Mean Corpuscular Volume 88.6 fl (81-99); Nucleated Red Blood Cells % 0 %; Platelet Count 330 K/mm3 (142-424); Red Blood Count 4.39 M/mm3 (4.20-5.40); Red Cell Distribution Width-SD 45.0 fL; White Blood Count 9.4 K/mm3 (4.8-10.8)
[2025-01-27 13:11] LABS: Activated Partial Thrombo Time 26.5 seconds (22.8-30.6); INR 0.95 (0.9-1.1); Prothrombin Time 10.6 seconds (10.1-12.5)
[2025-01-27 13:13] LABS: Chloride 103 mmol/L (98-107)
[2025-01-27 13:14] LABS: Potassium 3.9 mmoL/L (3.5-5.1); Sodium 139 mmol/L (136-145)
[2025-01-27 13:16] LABS: Alanine Aminotransferase 16 U/L (12-78); Anion Gap 9.9 mEq/L (5-15); Aspartate Amino Transferase 30 U/L (14-36); Carbon Dioxide 30 mmol/L (22.0-30.0)
[2025-01-27 13:17] LABS: Alkaline Phosphatase 62 U/L (38-126); Bilirubin,Total 0.5 mg/dl (0.2-1.3); Calcium 9.2 mg/dl (8.4-10.2); Glucose 92 mg/dl (74-100); Total Protein,Serum 7.8 g/dl (6.3-8.2)
[2025-01-27 13:21] LABS: Blood Urea Nitrogen 19 mg/dl (7-17)
[2025-01-27 13:36] LABS: Creatinine Clearance Estimated 109 mL/min (50-200); Creatinine,Serum 0.70 mg/dl (0.52-1.04); Estimated Glomerular Filt Rate 101 ml/min (>60); GFR (African American) 122 ML/MIN (>60)
--- NOTE | 2025-01-27 13:52 | ED_ITS ---
<Statement entered by Gisel Villalpando DO - 01/27/25 16:39> I was consulted by the JEFE, and we discussed the complexity of the problems being addressed. I approved the treatment and management plan for this patient's care in the emergency department, thus performing a substantive portion of the medical decision making. Labs reassuring, ultrasound reassuring, patient felt to be appropriate for discharge with gynecology follow-up. Strict return precautions given Gisel Villalpando DO Discharge Plan Disposition Patient Disposition: Home, Self-Care Condition: Good Prescriptions Prescriptions: No Action trxzpvjzjgtexfv-kizuwnfpl-KC [Bromfed DM] 2-30-10 mg/5 mL syrup 5 ml PO Q4-6H PRN (Reason: cold symptoms) Qty: 118 0RF fluticasone propionate [Allergy Relief (fluticasone)] 50 mcg/actuation spray,suspension 1 spray intranasal DAILY Qty: 16 0RF Rx Instructions: administer into each nostril Referrals Follow up/Referrals: Abdi Pastrana MD [Staff Physician, OBSTETRICS TEACHER] - See instructions Provider,MD Froylan [Primary Care Provider, Medical] - See instructions Activity Restrictions/Add. Instructions Additional Instructions/Restrictions: You were seen for vaginal bleeding. Return here if you have increased bleeding. Follow up with the INDUSTRIAL CHEMICALS SUPERVISOR this week. Clinical Impressions Clinical Impression: Abnormal vaginal bleeding Instructions Patient Instructions: DI for Abnormal Uterine Bleeding Print Language Print Language: Bruneian Discharge ED Provider: Caroline Jacobs General Adult HPI <JUAN M Mendez - Last Filed: 01/27/25 16:17> General Chief complaint: Vaginal Bleeding Stated complaint: stomch pain, cramps, period for over 2 wks Time Seen by Provider: 01/27/25 12:33 Mode of Arrival: Ambulatory Source of Information: Patient Description of Symptoms (Recalled from ER Triage Doc. by RN): Pt presents with c/o prolonged menses (2 weeks), and abnormal abdominal cramping that started a few days ago. Pt states she went through 3 super tampons in 1 hour History of Present Illness HPI narrative: Patient presents complaining of vaginal bleeding for the past 2 weeks. She reports a history of ovarian cancer with a unilateral oophorectomy and salpingectomy. She reports yesterday evening she had flow as heavy as 3 super tampons in 1 hour. She denies any fevers or vomiting. She does report some abdominal cramping associated with the bleeding. complaint: vaginal bleeding Onset (ago): week(s) Location: pelvis and genitals Radiation: non-radiation Severity: moderate Consistency: constant Relieving factors: none Exacerbating factors: none Associated symptoms: negative fever/chills Treatments prior to arrival: none Related Data Previous Rx's ?Medication ?Instructions ?Recorded uctpjqgyevdndqu-uljdlnmztyfsesz-PT 5 ml PO Q4-6H PRN c old symptoms 06/27/24 2 mg-30 mg-10 mg/5 mL oral syrup #118 mL (Bromfed DM) fluticasone propionate 50 1 spray intranasal DAILY #16 grams 06/27/24 mcg/actuation nasal spray,suspension (Allergy Relief (fluticasone)) Allergies Allergy/AdvReac Type Severity Reaction Status Date / Time Penicillins (PENICILLINS) Allergy Unknown Abdominal Verified 06/27/24 10:39 Pain PFSH <JUAN M Mendez - Last Filed: 01/27/25 16:17> [facility] Disclaimer: The information contained in this section may have been updated after the patient was seen, as this information can be updated by other users. 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: No Contact w/someone who lives/traveled outside US past 30 days?: No Exposure to someone with infectious disease in past 14 days?: No Do you have a fever (greater than 100.4 F or 38 C)?: No Have you tested positive for COVID-19?: No Exposed to someone with COVID-19 in past 14 days?: No Do you have a sore throat?: No Do you have a cough?: No Do you have any weakness?: No Do you have any diarrhea?: No Are you experiencing any unusual bleeding?: Yes Do you have any muscle aches/pain?: Yes Do you have any abdominal pain?: Yes Are you experiencing loss of taste or smell?: No Other Medical History Have you received the Flu Vaccine for this season: No Have you received the Pneumonia Vaccine: No <JUAN M Mendez - Last Filed: 01/27/25 16:17> ROS Obtained: Yes Systems reviewed as appropriate & no additional complaints except as documented Physical Exam <JUAN M Mendez Last Filed: 01/27/25 16:17> General General appearance: alert and in no apparent distress Head Head exam: atraumatic and normocephalic Eye Eye exam: Present normal appearance and EOMI Chest Chest inspection: Present symmetric chest wall rise Respiratory Respiratory exam: Present normal lung sounds bilaterally; Absent wheezes or stridor Cardiovascular Cardiovascular exam: Present regular rate and normal rhythm; Absent systolic murmur Abdominal Exam Abdominal exam: Present soft; Absent distention, tenderness or guarding Extremities Exam Extremities exam: Present full ROM Neurological Exam Neurological exam: Present alert and oriented X3 Psychiatric Psychiatric exam: Present normal affect and normal mood Skin Skin exam: Present warm, dry and intact Medical Decision Making <JUAN M Mendez Last Filed: 01/27/25 16:17> Medical Records Screening: Per USPSTF and CDC recommendations, given the prevalence of disease in our region, it is our hospital?s policy to screen for HIV and viral Hepatitis for all patients aged 18 and over and those with ongoing risk factors. Kelvin Inquiry Pt receiving controlled substance: No Vital Signs: 01/27/25 12:21 01/27/25 13:06 01/27/25 13:15 Temperature 98.6 F Temperature Source Oral Pulse Rate 111 H 110 H Pulse Rate [Right] 108 H Respiratory Rate 20 Blood Pressure 108/90 L 94/58 L Blood Pressure [Right Arm] 126/75 Blood Pressure Mean Blood Pressure Mean [Right Arm] 92 Blood Pressure Source Blood Pressure Source [Right Arm] Automatic Cuff Blood Pressure Position Blood Pressure Position [Right Arm] Sitting 02 Sat by Pulse Oximetry 98 98 97 Oxygen Delivery Method Room Air Room Air Room Air 01/27/25 13:30 01/27/25 13:45 01/27/25 14:00 Temperature Temperature Source Pulse Rate 107 H 65 Pulse Rate [Right] Respiratory Rate Blood Pressure 103/68 L 109/57 L 104/66 L Blood Pressure [Right Arm] Blood Pressure Mean 86 Blood Pressure Mean [Right Arm] Blood Pressure Source Blood Pressure Source [Right Arm] Blood Pressure Position Blood Pressure Position [Right Arm] 02 Sat by Pulse Oximetry 96 98 96 Oxygen Delivery Method Room Air Room Air Room Air 01/27/25 14:30 01/27/25 14:45 01/27/25 15:01 Temperature Temperature Source Pulse Rate 97 H 82 82 Pulse Rate [Right] Respiratory Rate Blood Pressure 109/64 L 96/68 L 95/60 L Blood Pressure [Right Arm] Blood Pressure Mean Blood Pressure Mean [Right Arm] Blood Pressure Source Blood Pressure Source [Right Arm] Blood Pressure Position Blood Pressure Position [Right Arm] 02 Sat by Pulse Oximetry 99 98 97 Oxygen Delivery Method Room Air Room Air Room Air 01/27/25 15:07 01/27/25 15:30 01/27/25 16:17 Temperature 97.4 F L Temperature Source Oral Pulse Rate 84 90 Pulse Rate [Right] Respiratory Rate 14 Blood Pressure 96/71 L 111/82 120/88 Blood Pressure [Right Arm] Blood Pressure Mean 89 Blood Pressure Mean [Right Arm] Blood Pressure Source Automatic Cuff Blood Pressure Source [Right Arm] Blood Pressure Position Sitting Blood Pressure Position [Right Arm] 02 Sat by Pulse Oximetry 97 Oxygen Delivery Method Room Air Room Air Lab Data Lab Results 01/27/25 12:21: Urine Color Yellow, Urine Appearance Clear, Urine pH 6.5, Ur Specific [place] 1.025, Urine Protein Negative, Urine Glucose (UA) Negative, Urine Ketones Negative, Urine Blood 2+ A, Urine Nitrate Negative, Urine Bilirubin Negative, Urine Urobilinogen 0.2, Ur Leukocyte Esterase Negative, Urine RBC 3-5, Urine WBC None, Ur Squamous Epith Cells 3-5, Urine Bacteria None, Urine HCG, Qual Negative 01/27/25 12:38: WBC 9.4, RBC 4.39, Hgb 13.2, Hct 38.9, MCV 88.6, MCH 30.1, MCHC 33.9, RDW 13.7, Plt Count 330, MPV 8.9, Neut % (Auto) 71.5, Lymph % (Auto) 18.3, [place] % (Auto) 5.5, Eos % (Auto) 3.9, Baso % (Auto) 0.6, Neut # (Auto) 6.7, Lymph # (Auto) 1.7, [place] # (Auto) 0.5, Eos # (Auto) 0.4, Baso # (Auto) 0.1, PT 10.6, INR 0.95, APTT 26.5, Sodium 139, Potassium 3.9, Chloride 103, Carbon Dioxide 30, Anion Gap 9.9, BUN 19 H, Creatinine 0.70, Estimated Creat Clear 109, Estimated GFR 101, Est GFR ( Amer) 122, Glucose 92, Calcium 9.2, Total Bilirubin 0.5, AST 30, ALT 16, Alkaline Phosphatase 62, Total Protein 7.8, Albumin 4.8, Globulin 3.0, Albumin/Globulin Ratio 1.6 01/27/25 12:38 01/27/25 12:38 Orders (Tests/Meds): ORDERS Category Date Time Status US transvaginal Stat Exams 01/27/25 12:55 Completed CBC w/Auto Diff [Complete Blood Count Auto Diff] Stat Lab 01/27/25 12:38 Completed CMP [Comprehensive Metabolic Panel] Stat Lab 01/27/25 12:38 Completed PT INR [Prothrombin Time INR] Stat Lab 01/27/25 12:38 Completed PTT [Activated Partial Thrombo Time] Stat Lab 01/27/25 12:38 Completed Urinalysis and Microscopic Stat Lab 01/27/25 12:21 Completed Urine , HCG Qual. Stat Lab 01/27/25 12:21 Completed Medical Decision Narrative: In summary patient is a 24-year-old female who presents the emergency department for evaluation of vaginal bleed. Patient is slightly tachycardic upon arrival, afebrile. Unremarkable physical exam. Differential diagnosis includes anemia, ovarian mass, miscarriage, ectopic , fibroid. Initial workup will be conducted with hematologic labs, transvaginal ultrasound, urinalysis. Initial workup reviewed by me unremarkable. Upon repeat evaluation patient is resting. Given this patient is appropriate for discharge home at this time with follow-up instructions to call gynecology, given return precautions. <Caroline Jacobs MD - Last Filed: 01/28/25 09:23> Vital Signs: 01/27/25 12:21 01/27/25 13:06 01/27/25 13:15 Temperature 98.6 F Temperature Source Oral Pulse Rate 111 H 110 H Pulse Rate [Right] 108 H Respiratory Rate 20 Blood Pressure 108/90 L 94/58 L Blood Pressure [Right Arm] 126/75 Blood Pressure Mean Blood Pressure Mean [Right Arm] 92 Blood Pressure Source Blood Pressure Source [Right Arm] Automatic Cuff Blood Pressure Position Blood Pressure Position [Right Arm] Sitting 02 Sat by Pulse Oximetry 98 98 97 Oxygen Delivery Method Room Air Room Air Room Air 01/27/25 13:30 01/27/25 13:45 01/27/25 14:00 Temperature Temperature Source Pulse Rate 107 H 65 Pulse Rate [Right] Respiratory Rate Blood Pressure 103/68 L 109/57 L 104/66 L Blood Pressure [Right Arm] Blood Pressure Mean 86 Blood Pressure Mean [Right Arm] Blood Pressure Source Blood Pressure Source [Right Arm] Blood Pressure Position Blood Pressure Position [Right Arm] 02 Sat by Pulse Oximetry 96 98 96 Oxygen Delivery Method Room Air Room Air Room Air 01/27/25 14:30 01/27/25 14:45 01/27/25 15:01 Temperature Temperature Source Pulse Rate 97 H 82 82 Pulse Rate [Right] Respiratory Rate Blood Pressure 109/64 L 96/68 L 95/60 L Blood Pressure [Right Arm] Blood Pressure Mean Blood Pressure Mean [Right Arm] Blood Pressure Source Blood Pressure Source [Right Arm] Blood Pressure Position Blood Pressure Position [Right Arm] 02 Sat by Pulse Oximetry 99 98 97 Oxygen Delivery Method Room Air Room Air Room Air 01/27/25 15:07 01/27/25 15:30 01/27/25 16:17 Temperature 97.4 F L Temperature Source Oral Pulse Rate 84 90 Pulse Rate [Right] Respiratory Rate 14 Blood Pressure 96/71 L 111/82 120/88 Blood Pressure [Right Arm] Blood Pressure Mean 89 Blood Pressure Mean [Right Arm] Blood Pressure Source Automatic Cuff Blood Pressure Source [Right Arm] Blood Pressure Position Sitting Blood Pressure Position [Right Arm] 02 Sat by Pulse Oximetry 97 Oxygen Delivery Method Room Air Room Air Lab Data Lab Results 01/27/25 12:21: Urine Color Yellow, Urine Appearance Clear, Urine pH 6.5, Ur Specific [place] 1.025, Urine Protein Negative, Urine Glucose (UA) Negative, Urine Ketones Negative, Urine Blood 2+ A, Urine Nitrate Negative, Urine Bilirubin Negative, Urine Urobilinogen 0.2, Ur Leukocyte Esterase Negative, Urine RBC 3-5, Urine WBC None, Ur Squamous Epith Cells 3-5, Urine Bacteria None, Urine HCG, Qual Negative 01/27/25 12:38: WBC 9.4, RBC 4.39, Hgb 13.2, Hct 38.9, MCV 88.6, MCH 30.1, MCHC 33.9, RDW 13.7, Plt Count 330, MPV 8.9, Neut % (Auto) 71.5, Lymph % (Auto) 18.3, [place] % (Auto) 5.5, Eos % (Auto) 3.9, Baso % (Auto) 0.6, Neut # (Auto) 6.7, Lymph # (Auto) 1.7, [place] # (Auto) 0.5, Eos # (Auto) 0.4, Baso # (Auto) 0.1, PT 10.6, INR 0.95, APTT 26.5, Sodium 139, Potassium 3.9, Chloride 103, Carbon Dioxide 30, Anion Gap 9.9, BUN 19 H, Creatinine 0.70, Estimated Creat Clear 109, Estimated GFR 101, Est GFR ( Amer) 122, Glucose 92, Calcium 9.2, Total Bilirubin 0.5, AST 30, ALT 16, Alkaline Phosphatase 62, Total Protein 7.8, Albumin 4.8, Globulin 3.0, Albumin/Globulin Ratio 1.6 Orders (Tests/Meds): ORDERS Category Date Time Status US transvaginal Stat Exams 01/27/25 12:55 Completed CBC w/Auto Diff [Complete Blood Count Auto Diff] Stat Lab 01/27/25 12:38 Completed CMP [Comprehensive Metabolic Panel] Stat Lab 01/27/25 12:38 Completed PT INR [Prothrombin Time INR] Stat Lab 01/27/25 12:38 Completed PTT [Activated Partial Thrombo Time] Stat Lab 01/27/25 12:38 Completed Urinalysis and Microscopic Stat Lab 01/27/25 12:21 Completed Urine , HCG Qual. Stat Lab 01/27/25 12:21 Completed Medical Decision Narrative: In summary patient is a 24-year-old female who presents the emergency department for evaluation of vaginal bleed. Patient is slightly tachycardic upon arrival, afebrile. Unremarkable physical exam. Differential diagnosis includes anemia, ovarian mass, miscarriage, ectopic , fibroid. Initial workup will be conducted with hematologic labs, transvaginal ultrasound, urinalysis. Initial workup reviewed by me unremarkable. Upon repeat evaluation patient is resting. Given this patient is appropriate for discharge home at this time with follow-up instructions to call gynecology, given return precautions. I was consulted by the JEFE, and we discussed the complexity of problems being addressed. I approved the treatment and management plan for this patient's care in the emergency department, thus performing a substantial portion of the medical decision making. Caroline Jacobs MD Critical Care <JUAN M Mendez - Last Filed: 01/27/25 16:17> Critical Care Time Critical Care Time: No
[2025-01-27 14:09] LABS: Albumin Level 4.8 g/dl (3.5-5.0); Albumin/Globulin Ratio 1.6 (1.1-1.8); Globulin 3.0 g/dL (1.3-3.2)
== END 2025-01-27 16:20 | disposition home or self-care (01) ==
PROVIDERS: Physician Assistant; Emergency Provider Student in an Organized Health Care Education/Training Program
DX: N93.9 Abnormal uterine and vaginal bleeding, unspecified (principal)
CPT/HCPCS: 76830; 80053; 81001; 81025; 85025; 85610; 85730; 99284

== ENCOUNTER 2025-03-01 20:55 | Emergency (ER) | payer OTHER, SELFPAY ==
[2025-03-01] VITALS (18 sets, daily range): BP systolic 102–140; BP diastolic 52–94; PULSE 60–120; RESP 18; TEMP 37; O2SAT 95–100; BMI 20.3
--- NOTE | 2025-03-01 21:13 | CT_ITS ---
PROCEDURE INFORMATION: Exam: CT Abdomen And Pelvis With Contrast Exam date and time: 03/01/2025 10:20 PM Age: 24 years old Clinical indication: Abdominal pain; Flank; Right; Additional info: Right flank pain TECHNIQUE: Imaging protocol: Computed tomography of the abdomen and pelvis with contrast. Radiation optimization: All CT scans at this facility use at least one of these dose optimization techniques: automated exposure control; mA and/or kV adjustment per patient size (includes targeted exams where dose is matched to clinical indication); or iterative reconstruction. Contrast material: ISOVUE; Contrast volume: 75 ml; Contrast route: IV; COMPARISON: CT ABDOMEN PELVIS W CON 08/03/2021 11:13 PM FINDINGS: Liver: Normal. No mass. Gallbladder and biliary ducts: Normal. No calcified stones. No ductal dilation. Pancreas: Normal. No ductal dilation. Spleen: Normal. No splenomegaly. Adrenal glands: Normal. No mass. Kidneys and ureters: 3 mm nonobstructing right renal stone. Stomach and bowel: Unremarkable. No obstruction. No mucosal thickening. Appendix: No evidence of appendicitis. Intraperitoneal space: Unremarkable. No free air. No significant fluid collection. Retroperitoneal space: Retroperitoneal and left pelvic surgical clips. Vasculature: Unremarkable. No abdominal aortic aneurysm. Lymph nodes: Unremarkable. No enlarged lymph nodes. Urinary bladder: Mead catheter within the urinary bladder. Reproductive: 2.1 cm right ovarian cyst. Bones/joints: Mild S shaped thoracolumbar spinal curvature. Soft tissues: Unremarkable. IMPRESSION: 1. 3 mm nonobstructing right renal stone. 2. 2.1 cm right ovarian cyst.
--- OUTSIDE RECORDS SUMMARY | 2025-03-01 21:14 | XMS_ITS | Encounter Summary ---
Author Organization Healthcare Address [address] [place] [id number] Care Team Providers Care Pediatric Clinical Dietician Name Role Phone Pcp, No Primary Care Provider Unavailabl e Encounter Details Date Type Department Care Team ([facility] st Contact Info) Description 01/25/2025 Telephone [facility] [address] [place] [address] Megan Comer MD [address] [facility] [address] [place] [address] Social History Tobacco Use Types Packs/Day Years Used Date Smoking Tobacco: Some Days Cigarettes 0.5 10 Passive Smoke Exposure: Current Smokeless Tobacco: Current Alcohol Use Standard Drinks/Week Comments Not Currently 0 (1 standard drink = 0.6 oz pur e alcohol) social PHQ-2 Answer Date Recorded Patient Health Questionnaire-2 Score 0 02/03/2023 CAGE ASSESSMENT Answer Date Recorded Cage unable to access Not on file 11/16/2021 Cage max number of drinks Not on file 2021 Cage Beverages a week Not on file 11/16/2021 Have you ever felt you should CUT down on your d rinking? 0 11/16/2021 Have you been ANNOYED by people criticizing your drinking? 0 11/16/2021 Have you felt GUILTY about your drinking? 0 11/16/2021 Have you had a drink first t mikki in the morning (EYE-MET[employer] POLISHER) to steady your nerves or to get rid of a hangover? 0 11/16/2021 CAGE Questionnaire Score 0 022 PHQ-2A Answer Date Recorded Patient Health Questionnaire-2 Score 0 02/03/2023 Comments No Sex and Gender Information Value Date Recorded Sex Assigned at Female 08/12/2021 10:17 AM EDT Legal Sex Female 9:33 AM EDT Gender Identity Female 08/12/2021 10:17 AM EDT Sexual Orientation Not on file documented as of this encounter Miscellaneous Notes * Telephone Encounter - Bethany Harry - 01/25/2025 3:24 PM EST Patient has requested to reschedule her PET scan. documented in this encounter Plan of Treatment Not on file documented as of this encounter Visit Diagnoses Not on filedocumented in this encounter Additional Health Concerns Assessment Noted Time A fall risk assessment has been complete d for the patient 02/03/2023 8:34 AM EST documented as of this encounter Care Teams Pediatric Clinical Dietician Relationship Specialty Start Date End Date Pcp, [place] [address] PCP - General Family Medicine 08/05/20 documented as of this encounter
--- OUTSIDE RECORDS SUMMARY | 2025-03-01 21:14 | XMS_ITS ---
Author Organization Healthcare Address [address] 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 Past Treatment and Therapy Plans Oncology Treatment Plan Name Start Date Discontinue Date Treatment Medications Discontinue Reason Plan Provider Cycles BEP: Bleomycin Weekly x 3 / Etoposide Daily x 5 / CISplatin Daily x 5 Every 21 Days 2 02/22/2022 bleomycin (Bleocin)bleomyc in (Bleocin) IVPBCISplatin (Platinol)CISpla tin (Platinol) IVPBEtoposide (Toposar)etoposi de (Vepesid) IVPB Therapy Complete Megan Comer MD 5 of 5 cycles started Lifetime Dose Tracking * Chemical Lifetime Dose Automatic Entry Manual Entr y Bleomycin 330 Units 330 Units 0 Units
--- OUTSIDE RECORDS SUMMARY | 2025-03-01 21:14 | XMS_ITS | Encounter Summary ---
Author Organization Healthcare Address [address] [place] [id number] Care Team Providers Care Dub Room Engineer Name Role Phone Pcp, No Primary Care Provider Unavailabl e Reason for Visit * Auth/Cert Specialty Diagnoses / Procedures Referred By Haseeb t Referred To Contact Diagnoses Pelvic mass Pelvic mass [R19.00] Procedures NM REMOVAL OF OVARY/TUBE(S) USO, Possible Staging Megan Comer MD [address] [facility] [address] [place] [address] Phone: tel: fax: [facility] [address] [place] [address] Phone: tel: Referral ID Status Reason Start Date Expiration Date Visits Re quested Visits Authorized [id number] 1 Encounter Details Date Type Department Care Team (Late st Contact Info) Description 08/18/2021 Lab Requisition [facility] [address] [place] [address] Valentin Moore DO [address] [place] [address] Intra-abdominal and pelvic swelling, mass and lump, unspecified site Social History Tobacco Use Types Packs/Day Years Used Date Smoking Tobacco: Every Day Cigarettes Smokeless Tobacco: Never Alcohol Use Standard Drinks/Week Comments Yes 0 (1 standard drink = 0.6 oz pur e alcohol) social Comments No Sex and Gender Information Value Date Recorded Sex Assigned at Female 08/12/2021 10:17 AM EDT Legal Sex Female 9:33 AM EDT Gender Identity Female 08/12/2021 10:17 AM EDT Sexual Orientation Not on file COVID-19 Exposure Response Date Recorded In the last 10 days, have yo u been in contact with someone who was confirmed or suspected to have Coronavirus/COVID-19? No / Unsure 08/12/2021 10:18 AM EDT documented as of this encounter Plan of Treatment Not on file documented as of this encounter Procedures Procedure Name Priority Date/Time Associated Diagnosis Comments AP MISCELLANEOUS LAB TEST (SO) Routine 08/12/2021 12:17 PM EDT Intra-abdominal and pelvic swelling, mass and lump, unspecified site documented in this encounter Results * - Miscellaneous Test (08/12/2021 12:17 PM EDT) Test name BRG1-Varela 08/24/2021 9:02 AM EDT [facility] Comment:[id number] A12 Test Result see addendum in path report 08/24/2021 9:02 AM EDT [facility] See Scanned Result 08/24/2021 9:02 AM EDT [facility] Tissue 08/12/2021 12:1 7 PM EDT 08/18/2021 1:13 PM EDT us Valentin Moore DO LAB REF LAB BLOOD AND FLUID ORD Final Result [facility] [address] [place] [address] documented in this encounter Visit Diagnoses Diagnosis Intra-abdominal and pelvic swelling, mass and lump, unspecified site documented in this encounter Additional Health Concerns Infection Onset Date Last Indicated Resolved Time COVID 19 (Confirmed) Comment:10/27/2021-Patient will not require isolation for COVID-19 during this 10/26/2021 admission as she is greater then 14 days from positive COVID results. 10/27/2021 10/27/2021 10/27/2021 10:38 AM EDT documented as of this encounter Care Teams Dub Room Engineer Relationship Specialty Start Date End Date Pcp, No [address] [place] [address] PCP - General Family Medicine 08/05/20 documented as of this encounter
--- OUTSIDE RECORDS SUMMARY | 2025-03-01 21:14 | XMS_ITS | Encounter Summary ---
Author Organization Healthcare Address [address] [place] [address] Care Team Providers Care Filing And Polishing Supervisor Name Role Phone Pcp, No Primary Care Provider Unavailabl e Encounter Details Date Type Department Care Team ([facility] st Contact Info) Description 09/08/2021 Lab Requisition [facility] [address] [place] [address] Megan Comer MD [address] [facility] [address] [place] [address] Malignant neoplasm of unspecified ovary (CMS/HCC) Social History Tobacco Use Types Packs/Day Years [...] suspected to have Coronavirus/COVID-19? No / Unsure 09/08/2021 9:31 AM EDT documented as of this encounter Plan of Treatment Not on file documented as of this encounter Procedures Procedure Name Priority Date/Time Associated Diagnosis Comments AP MISCELLANEOUS LAB TEST (SO) Routine 08/12/2021 12:17 PM EDT Malignant neoplasm of unspecified ovary (CMS/HCC) documented in this encounter Results * - Miscellaneous Test (08/12/2021 12:17 PM EDT) Test name TITA Jimenez ris 09/25/2021 8:58 AM EDT HEALTHCARE LAB Comment:[id number] Test Result see scan 09/25/2021 8:58 AM EDT [facility] See Scanned Result 09/25/2021 8:58 AM EDT [facility] Tissue 08/12/2021 12:1 7 PM EDT 09/08/2021 3:30 PM EDT us Megan Comer MD LAB REF LAB BLOOD AND FLUID O RD Final Result [facility] [address] [place] [address] documented in this encounter Visit Diagnoses Diagnosis Malignant neoplasm of unspecified ovary (CMS/HCC) documented in this encounter Additional Health Concerns Infection Onset Date Last Indicated Resolved Time COVID 19 (Confirmed) Comment:10/27/2021-Patient will not require isolation for COVID-19 during this 10/26/2021 admission as she is greater then 14 days from positive COVID results. 10/27/2021 10/27/2021 10/27/2021 10:38 AM EDT documented as of this encounter Care Teams Filing And Polishing Supervisor Relationship Specialty Start Date End Date Pcp, Carissa [address] [place] [address] PCP - General Family Medicine 08/05/20 documented as of this encounter
--- OUTSIDE RECORDS SUMMARY | 2025-03-01 21:14 | XMS_ITS | Clinical Summary ---
Author Organization Healthcare Address [address] [place] [address] Care Team Providers Care Sales And In Home Delivery Specialist Name Role Phone Pcp, No Primary Care Provider Unavailabl e Allergies Active Allergy Reactions Criticality Noted Date Comments Penicillins Unknown - Patient st ates they do not know rxn details Low 08/04/2021 Medications citalopram (CeleXA) 10 MG tablet Take 1 tablet (10 mg total) by mouth 1 (one) time each day. 30 tablet 11 2 Active loratadine (Claritin) 10 MG tablet Take 1 tablet (10 mg total) by mouth 1 (one) time each day. 30 tablet 11 2 Active al mag oxide-diphenhyd rAMINE-nystatin (MAGIC Mouthwash, Modified,) suspension Take 15 mL by mouth 4 (four) times a day if needed (thrush). 60 mL 2 Active Additional Information Patient not taking.Reported on 02/03/2023 oxyCODONE-aceta minophen (Percocet) 5-325 MG tablet 2 Active diphenhydrAMINE 12.5 MG/5ML elixir 50 mg, aluminum-magnes ium hydroxide-simet hicone 400-400-40 MG/5ML suspension 20 mL, lidocaine 2 % solution 20 mL Swish and spit 15 mL every 6 (six) hours if needed (for mouth sores). 237 mL 1 2 Active Additional Information Patient not taking.Reported on 02/03/2023 DEXAMETHASONE PO Take by mouth. Activ e ibuprofen 600 MG tablet Take 1 tablet (600 mg) by mouth 1 (one) time each day if needed for mild pain. Active MELATONIN PO Take by mouth. Ac tive acetaminophen (Tylenol) 500 MG tablet Take 2 tablets (1,000 mg) by mouth 1 (one) time each day if needed. Active gabapentin (Neurontin) 300 MG capsule Take 1 capsule (300 mg total) by mouth 2 (two) times a day if needed (pain). 30 capsule 3 Active Additional Information Patient not taking.Reported on 02/03/2023 prochlorperazin e (Compazine) 10 MG tablet Take 10 mg by mouth every 6 (six) hours if needed for nausea or vomiting. 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 [address] [place] [phone] Megan Comer MD from Last 3 Months Family History Medical History Relation Name Comments COPD Mother Cancer Mother lung cancer, br ain tumors Cancer Other Stroke Other father side Relation Name Status Comments Mother Other Social History Tobacco Use Types Packs/Day Years Used Date Smoking Tobacco: Some Days Cigarettes 0.5 10 Passive Smoke Exposure: Current Smokeless Tobacco: Current Tobacco Cessation:Ready to Q uit: Not Asked; Counseling Given: Not Answered Alcohol Use Standard Drinks/Week Comments Not Currently [...] drink first t mikki in the morning (EYE-NURSES DIRECTOR) to steady your nerves or to get rid of a hangover? 0 11/16/2021 CAGE Questionnaire Score 0 022 PHQ-2A Answer Date Recorded Patient Health Questionnaire-2 Score 0 02/03/2023 Comments No Sex and Gender Information Value Date Recorded Sex Assigned at Female 08/12/2021 10:17 AM EDT Legal Sex Female 9:33 AM EDT Gender Identity Female 08/12/2021 10:17 AM EDT Sexual Orientation Not on file Last Filed Vital Signs Vital Sign Reading Time Taken Comments Blood Pressure 100/70 02/03/2023 8:29 AM EST Pulse 78 02/03/2023 8:29 AM EST Temperature 36.6 C (97.8 F) 02/03/2023 8:29 AM EST Respiratory Rate 16 02/03/2023 8:29 AM EST Oxygen Saturation 98% 02/03/2023 8:29 AM EST Inhaled Oxygen Concentration - - Weight 56.4 kg (124 lb 5.4 oz) 02/03/2023 8:29 A M EST Height 170.2 cm (5' 7 ) 02/03/2023 8:29 AM EST Body Mass Index 19.47 02/03/2023 8:29 AM EST Plan of Treatment Health Maintenance Due Date Last Done Comments [facility]-HIV Screening 1998 [facility]-Hepatitis C Screening 1998 [facility]-/Child/Adol SDOH Screenings 1998 [facility]-IPV Vaccines (3 of 3 - 4-dose series) 2002 1998, 1998 [facility]-HCRVR-20 Vaccine (#1) 2003 HPV Vaccines (1 - Risk 3-dose series) 2009 [facility]-Varicella Vaccines (2 of 2 - 2-dose childhood series) 08/31/2010 06/08/2010 [facility]- SDOH Screenings 2016 [facility]-Adult SDOH Screenings 2016 [facility]-Pneumococcal Vaccine: Pediatrics (0 to 5 Years) and At-Risk Patients (6 to 49 Years) (1 of 2 - PCV) 2017 [facility]-Zoster Vaccines (1 of 2) 2017 06/08/2010 [facility]-Pap Smear 2019 [facility]-Depression Screening 02/04/2024 023, 02/22/2022, 09/03/2021 [facility]-Hepatitis B Vaccines (3 of 3 - 3-dose series) 05/30/2024 2024, 1998 [facility]-Influenza Vaccine (#1) 2024 [facility]-DTaP,Tdap,and Td Vaccines (5 - Td or Tdap) 06/12/2030 06/12/2020, 06/08/2010, 1998, Additional history exists [facility]-HIB Vaccines Aged Out 1998, 1998 N o longer eligible based on patient's age to complete this topic [facility]-Hepatitis A Vaccines Aged Out 2024 No longer eligible based on patient's age to complete this topic [facility]-Rotavirus Vaccines Aged Out No lo nger eligible based on patient's age to complete this topic Medical Devices Implanted Type Area Vice President Process Device Identifier Shelf Expiration Date Model / Serial / Lot Port [employer]vue Power 6fr - [id number] Implanted:Qty: 1 on 09/08/2021 by Lachelle Almaraz MD at [facility], [place] [employer]-[id number] 07/18/2022 [id number] / / [id number] Insurance MEDICAID Advance Directives * Full Code (Latest Code Status on File) Date Activated Date Inactivated Comments 12/14/2021 10:15 AM 12/19/2021 11:11 AM Question Answer Comments Patient has decision-making capacity? Yes * Full Code Date Activated Date Inactivated Comments 11/16/2021 9:30 AM 11/21/2021 12:05 PM Question Answer Comments Patient has decision-making capacity? Yes * Full Code Date Activated Date Inactivated Comments 10/26/2021 12:57 PM 10/31/2021 2:37 PM Question Answer Comments Patient has decision-making capacity? Yes * Full Code Date Activated Date Inactivated Comments 10/12/2021 9:53 AM 10/13/2021 1:17 AM Question Answer Comments Patient has decision-making capacity? Yes * Full Code Date Activated Date Inactivated Comments 09/21/2021 10:54 AM 09/26/2021 10:02 AM Question Answer Comments Patient has decision-making capacity? Yes Care Teams Sales And In Home Delivery Specialist Relationship Specialty Start Date End Date Pcp, No [address] [place] [address] PCP - General Family Medicine 08/05/20
--- NOTE | 2025-03-01 21:18 | ED_ITS ---
<Statement entered by Constance Bryant DO - 03/02/25 00:00> I was consulted by the JEFE, and we discussed the complexity of problems being addressed. I approve the treatment and management plan for this patient's care in the emergency department, thus performing a substantial portion of the medical decision making. Constance Bryant DO Discharge Plan Disposition Patient Disposition: Home, Self-Care Condition: Good Prescriptions Prescriptions: New tamsulosin 0.4 mg capsule 0.4 mg PO DAILY 7 Days Qty: 7 0RF No Action ldzfhjjkxlbvsds-vkoyzoued-UL [Bromfed DM] 2-30-10 mg/5 mL syrup 5 ml PO Q4-6H PRN (Reason: cold symptoms) Qty: 118 0RF fluticasone propionate [Allergy Relief (fluticasone)] 50 mcg/actuation spray,suspension 1 spray intranasal DAILY Qty: 16 0RF Rx Instructions: administer into each nostril Referrals Follow up/Referrals: Wilfredo Roy MD [Staff Physician, Urology] - See instructions Provider,MD Froylan [Primary Care Provider, Medical] - See instructions Activity Restrictions/Add. Instructions Additional Instructions/Restrictions: Take the Flomax as needed. Follow-up with your primary care provider. Return to the emergency department if you are unable to pee by noon tomorrow. Follow- up with urology. Clinical Impressions Clinical Impression: Acute urinary retention, Kidney stone Instructions Patient Instructions: DI for Urinary Tract Infection (UTI), DI for Urinary Tract Infection in Children Print Language Print Language: Croatian Discharge ED Provider: Constance Bryant General Adult HPI <Chelsea Golden (ED), [employer] - Last Filed: 03/01/25 22:03> General Chief complaint: Urogenital-Female Stated complaint: Unable to urinate, weakness, pain in lower back Time Seen by Provider: 03/01/25 21:06 Mode of Arrival: Ambulatory Source of Information: Patient Description of Symptoms (Recalled from ER Triage Doc. by RN): patient states that she has not been able to pee since this morning. patient is also very tearful and states she feels like she is having a spiritual awakening History of Present Illness HPI narrative: 24-year-old female presents to the ED today for complaint of inability to urinate. She says she has no history of stones. Over the last few hours she has not been able to pee. She feels like she has had chills but no fever. She has had no vomiting but nausea. Upon evaluation she was shaking. She had greater than 600 mL in her bladder upon bladder scan. She denies any other symptoms. She does have 110 heart rate. Related Data Previous Rx's ?Medication ?Instructions ?Recorded srjlucfpoocjbwx-hzmczfixdlzylwx-DI 5 ml PO Q4-6H PRN c old symptoms 06/27/24 2 mg-30 mg-10 mg/5 mL oral syrup #118 mL (Bromfed DM) fluticasone propionate 50 1 spray intranasal DAILY #16 grams 06/27/24 mcg/actuation nasal spray,suspension (Allergy Relief (fluticasone)) tamsulosin 0.4 mg capsule 0.4 mg PO DAILY 7 days #7 ca ps 03/02/25 Allergies Allergy/AdvReac Type Severity Reaction Status Date / Time Penicillins (PENICILLINS) Allergy Unknown Abdominal Verified 06/27/24 10:39 Pain PFS <Chelsea Golden (ED), [employer] - Last Filed: 03/01/25 22:03> PFS Disclaimer: The information contained in this section may have been updated after the patient was seen, as this information can be updated by other users. 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: No Contact w/someone who lives/traveled outside US past 30 days?: No Exposure to someone with infectious disease in past 14 days?: No Do you have a fever (greater than 100.4 F or 38 C)?: No Have you tested positive for COVID-19?: No Exposed to someone with COVID-19 in past 14 days?: No Do you have a sore throat?: No Do you have a cough?: No Do you have any weakness?: No Do you have any diarrhea?: No Are you experiencing any unusual bleeding?: No Do you have any muscle aches/pain?: No Do you have any abdominal pain?: No Are you experiencing loss of taste or smell?: No Other Medical History Have you received the Flu Vaccine for this season: No Have you received the Pneumonia Vaccine: No <Chelsea Golden (ED), [employer]ENT - Last Filed: 03/01/25 22:03> ROS Obtained: Yes Systems reviewed as appropriate & no additional complaints except as documented Constitutional Constitutional: Reports as per HPI Physical Exam <Chelsea Golden (ED), [employer]ENT - Last Filed: 03/01/25 22:03> General General appearance: alert and in no apparent distress Head Head exam: normocephalic Eye Eye exam: Present PERRL and EOMI ENT ENT exam: Present normal oropharynx and mucous membranes moist Neck Neck exam: Present full ROM and trachea midline Respiratory Respiratory exam: Present normal lung sounds bilaterally Cardiovascular Cardiovascular exam: Present normal rhythm, tachycardia, normal heart sounds, +S1 and +S2 Abdominal Exam Abdominal exam: Present soft and normal bowel sounds Abdominal tenderness: Present mild Extremities Exam Extremities exam: Present full ROM and normal capillary refill Neurological Exam Neurological exam: Present alert and oriented X3 Skin Skin exam: Present warm, dry and intact Medical Decision Making <Chelsea Golden (ED), [employer] - Last Filed: 03/01/25 22:03> Medical Records Screening: Per USPSTF and CDC recommendations, given the prevalence of disease in our region, it is our hospital?s policy to screen for HIV and viral Hepatitis for all patients aged 18 and over and those with ongoing risk factors. Kelvin Inquiry Pt receiving controlled substance: No Kelvin was queried for this patient: No Vital Signs: 03/01/25 21:10 03/01/25 21:13 03/01/25 21:15 Temperature 98.6 F Temperature Source Oral Pulse Rate 99 H 102 H Pulse Rate [Left] 110 H Respiratory Rate 18 Blood Pressure Blood Pressure [Right Arm] 122/82 Blood Pressure Mean Blood Pressure Mean [Right Arm] 95 Blood Pressure Source Blood Pressure Source [Right Arm] Automatic Cuff Blood Pressure Position Blood Pressure Position [Right Arm] Sitting 02 Sat by Pulse Oximetry 99 100 100 Oxygen Delivery Method Room Air Room Air Room Air 03/01/25 21:30 03/01/25 21:30 03/01/25 21:41 Temperature Temperature Source Pulse Rate 105 H 105 H Pulse Rate [Left] Respiratory Rate Blood Pressure 120/80 Blood Pressure [Right Arm] Blood Pressure Mean 88 Blood Pressure Mean [Right Arm] Blood Pressure Source Blood Pressure Source [Right Arm] Blood Pressure Position Blood Pressure Position [Right Arm] 02 Sat by Pulse Oximetry 100 98 Oxygen Delivery Method Room Air Room Air 03/01/25 21:41 03/01/25 21:45 03/01/25 21:47 Temperature Temperature Source Pulse Rate 120 H 104 H Pulse Rate [Left] Respiratory Rate Blood Pressure 114/72 Blood Pressure [Right Arm] Blood Pressure Mean 82 Blood Pressure Mean [Right Arm] Blood Pressure Source Blood Pressure Source [Right Arm] Blood Pressure Position Blood Pressure Position [Right Arm] 02 Sat by Pulse Oximetry 99 99 Oxygen Delivery Method Room Air Room Air 03/01/25 22:00 03/01/25 22:26 03/01/25 22:30 Temperature Temperature Source Pulse Rate 107 H 90 Pulse Rate [Left] Respiratory Rate Blood Pressure 108/72 L Blood Pressure [Right Arm] Blood Pressure Mean 78 Blood Pressure Mean [Right Arm] Blood Pressure Source Blood Pressure Source [Right Arm] Blood Pressure Position Blood Pressure Position [Right Arm] 02 Sat by Pulse Oximetry 95 100 Oxygen Delivery Method Room Air Room Air 03/01/25 22:30 03/01/25 22:45 03/01/25 22:54 Temperature Temperature Source Pulse Rate 86 91 H Pulse Rate [Left] Respiratory Rate Blood Pressure 120/74 Blood Pressure [Right Arm] Blood Pressure Mean 83 Blood Pressure Mean [Right Arm] Blood Pressure Source Blood Pressure Source [Right Arm] Blood Pressure Position Blood Pressure Position [Right Arm] 02 Sat by Pulse Oximetry 100 98 Oxygen Delivery Method Room Air Room Air 03/01/25 23:00 03/01/25 23:13 03/01/25 23:16 Temperature Temperature Source Pulse Rate 60 61 Pulse Rate [Left] Respiratory Rate Blood Pressure 115/70 Blood Pressure [Right Arm] Blood Pressure Mean 83 Blood Pressure Mean [Right Arm] Blood Pressure Source Blood Pressure Source [Right Arm] Blood Pressure Position Blood Pressure Position [Right Arm] 02 Sat by Pulse Oximetry 98 98 Oxygen Delivery Method Room Air Room Air 03/01/25 23:17 03/01/25 23:17 03/01/25 23:19 Temperature Temperature Source Pulse Rate 60 98 H Pulse Rate [Left] Respiratory Rate Blood Pressure 140/94 H Blood Pressure [Right Arm] Blood Pressure Mean 104 Blood Pressure Mean [Right Arm] Blood Pressure Source Blood Pressure Source [Right Arm] Blood Pressure Position Blood Pressure Position [Right Arm] 02 Sat by Pulse Oximetry 97 98 Oxygen Delivery Method Room Air Room Air 03/01/25 23:19 03/01/25 23:34 03/01/25 23:34 Temperature Temperature Source Pulse Rate 87 Pulse Rate [Left] Respiratory Rate Blood Pressure 105/62 L 102/52 L Blood Pressure [Right Arm] Blood Pressure Mean 76 69 Blood Pressure Mean [Right Arm] Blood Pressure Source Blood Pressure Source [Right Arm] Blood Pressure Position Blood Pressure Position [Right Arm] 02 Sat by Pulse Oximetry 96 Oxygen Delivery Method Room Air 03/02/25 00:49 Temperature 98.6 F Temperature Source Oral Pulse Rate 87 Pulse Rate [Left] Respiratory Rate 16 Blood Pressure 102/52 L Blood Pressure [Right Arm] Blood Pressure Mean Blood Pressure Mean [Right Arm] Blood Pressure Source Automatic Cuff Blood Pressure Source [Right Arm] Blood Pressure Position Sitting Blood Pressure Position [Right Arm] 02 Sat by Pulse Oximetry Oxygen Delivery Method Room Air Lab Data Lab Results 03/01/25 21:10: WBC 12.3 H, RBC 4.73, Hgb 14.3, Hct 41.2, MCV 87.1, MCH 30.2, MCHC 34.7, RDW 13.2, Plt Count 380, MPV 8.8, Neut % (Auto) 81.1 H, Lymph % (Auto) 13.1, [place] % (Auto) 4.9, Eos % (Auto) 0.4, Baso % (Auto) 0.3, Neut # (Auto) 10.0 H, Lymph # (Auto) 1.6, [place] # (Auto) 0.6, Eos # (Auto) 0.1, Baso # (Auto) 0.0, Sodium 138, Potassium 3.9, Chloride 99, Carbon Dioxide 25, Anion Gap 17.9 H, BUN 19 H, Creatinine 0.90, Estimated Creat Clear 88, Estimated GFR 76, Est GFR ( Amer) 92, Glucose 113 H, Calcium 9.8, Magnesium 2.0, Total Bilirubin 0.5, AST 31, ALT 17, Alkaline Phosphatase 74, Troponin I < 0.01, Total Protein 9.3 H, Albumin 5.2 H, Globulin 4.1 H, Albumin/Globulin Ratio 1.3, Lipase 80, HCG, Quant < 2 03/01/25 21:27: SARS-CoV-2 (PCR) Not detected, Influenza A Untype (PCR) Not detected, Influenza Type B (PCR) Not detected 03/01/25 21:30: Urine Color Yellow, Urine Appearance Clear, Urine pH 6.0, Ur Specific [place] <= 1.005, Urine Protein Negative, Urine Glucose (UA) Negative, Urine Ketones Negative, Urine Blood 3+ A, Urine Nitrate Negative, Urine Bilirubin Negative, Urine Urobilinogen 0.2, Ur Leukocyte Esterase Negative, Urine RBC 5-10, Urine WBC Occasional, Ur Squamous Epith Cells None, Urine Bacteria 1+ 03/01/25 21:10 03/01/25 21:10 Orders (Tests/Meds): ED MEDICATIONS Discontinued Medications Generic Name Dose Route Start Last Admin Trade Name Asadq PRN Reason Stop Dose Admin Sodium Chloride 1,000 mls @ 999 mls/hr 03/01/25 23:18 03/02/25 00:27 Sod Chlor 0.9% 1000ml Bag IV 03/02/25 00:18 Infused .Q1H1M ONE Infusion Iopamidol 75 ml 03/01/25 22:22 03/01/25 22:23 Iopamidol-370 (76%);100ml Bottle IV 03/01/25 22:23 75 ml ONCE ONE Administration Ketorolac Tromethamine 30 mg 03/01/25 21:13 03/01/25 21:40 Ketorolac 30mg/Ml Vial IV 03/01/25 21:14 30 mg ONCE ONE Administration Ondansetron HCl 4 mg 03/01/25 21:13 03/01/25 21:40 Ondansetron 4mg/2ml Vial IV 03/01/25 21:14 4 mg ONCE ONE Administration Tamsulosin HCl 0.4 mg 03/01/25 23:18 03/01/25 23:30 Tamsulosin 0.4mg Capsule PO 03/01/25 23:19 0.4 mg ONCE ONE Administration ORDERS Category Date Time Status CT abdomen pelvis w con Stat Cat Scan 03/01/25 21:13 Completed Beta HCG, Quant [HCG,Quantitative] Stat Lab 03/01/25 21:10 Completed CBC [Complete Blood Count Auto Diff] Stat Lab 03/01/25 21:10 Completed Comprehensive Metabolic Panel Stat Lab 03/01/25 21:10 Completed Lipase Stat Lab 03/01/25 21:10 Completed Magnesium Stat Lab 03/01/25 21:10 Completed Rapid PCR Covid and Flu A/B Stat Lab 03/01/25 21:27 Completed Trop I [Troponin I] Stat Lab 03/01/25 21:10 Completed UA [Urinalysis and Microscopic] Stat Lab 03/01/25 21:30 Completed Urine Culture Stat Micro 03/01/25 21:30 Received Medical Decision Narrative: patient is a 24-year-old female presenting to the emergency department for evaluation of inability to urinate. Patient is hemodynamically stable and nontoxic-appearing upon arrival, afebrile. Differential diagnosis includes obstructing ureter, kidney stone, UTI, among others. Workup will be conducted with hematologic labs, specific imaging, provocative tests. Initial inventions include crystalloid bolus, analgesics, antibiotics. Bladder scanner showed more than 600 mL of urine so I ordered a standing Mead. <Constance Bryant, DO - Last Filed: 03/02/25 00:07> Medical Records Medical records reviewed: Yes I reviewed the patient's medical records. Vital Signs: 03/01/25 21:10 03/01/25 21:13 03/01/25 21:15 Temperature 98.6 F Temperature Source Oral Pulse Rate 99 H 102 H Pulse Rate [Left] 110 H Respiratory Rate 18 Blood Pressure Blood Pressure [Right Arm] 122/82 Blood Pressure Mean Blood Pressure Mean [Right Arm] 95 Blood Pressure Source Blood Pressure Source [Right Arm] Automatic Cuff Blood Pressure Position Blood Pressure Position [Right Arm] Sitting 02 Sat by Pulse Oximetry 99 100 100 Oxygen Delivery Method Room Air Room Air Room Air 03/01/25 21:30 03/01/25 21:30 03/01/25 21:41 Temperature Temperature Source Pulse Rate 105 H 105 H Pulse Rate [Left] Respiratory Rate Blood Pressure 120/80 Blood Pressure [Right Arm] Blood Pressure Mean 88 Blood Pressure Mean [Right Arm] Blood Pressure Source Blood Pressure Source [Right Arm] Blood Pressure Position Blood Pressure Position [Right Arm] 02 Sat by Pulse Oximetry 100 98 Oxygen Delivery Method Room Air Room Air 03/01/25 21:41 03/01/25 21:45 03/01/25 21:47 Temperature Temperature Source Pulse Rate 120 H 104 H Pulse Rate [Left] Respiratory Rate Blood Pressure 114/72 Blood Pressure [Right Arm] Blood Pressure Mean 82 Blood Pressure Mean [Right Arm] Blood Pressure Source Blood Pressure Source [Right Arm] Blood Pressure Position Blood Pressure Position [Right Arm] 02 Sat by Pulse Oximetry 99 99 Oxygen Delivery Method Room Air Room Air 03/01/25 22:00 03/01/25 22:26 03/01/25 22:30 Temperature Temperature Source Pulse Rate 107 H 90 Pulse Rate [Left] Respiratory Rate Blood Pressure 108/72 L Blood Pressure [Right Arm] Blood Pressure Mean 78 Blood Pressure Mean [Right Arm] Blood Pressure Source Blood Pressure Source [Right Arm] Blood Pressure Position Blood Pressure Position [Right Arm] 02 Sat by Pulse Oximetry 95 100 Oxygen Delivery Method Room Air Room Air 03/01/25 22:30 03/01/25 22:45 03/01/25 22:54 Temperature Temperature Source Pulse Rate 86 91 H Pulse Rate [Left] Respiratory Rate Blood Pressure 120/74 Blood Pressure [Right Arm] Blood Pressure Mean 83 Blood Pressure Mean [Right Arm] Blood Pressure Source Blood Pressure Source [Right Arm] Blood Pressure Position Blood Pressure Position [Right Arm] 02 Sat by Pulse Oximetry 100 98 Oxygen Delivery Method Room Air Room Air 03/01/25 23:00 03/01/25 23:13 03/01/25 23:16 Temperature Temperature Source Pulse Rate 60 61 Pulse Rate [Left] Respiratory Rate Blood Pressure 115/70 Blood Pressure [Right Arm] Blood Pressure Mean 83 Blood Pressure Mean [Right Arm] Blood Pressure Source Blood Pressure Source [Right Arm] Blood Pressure Position Blood Pressure Position [Right Arm] 02 Sat by Pulse Oximetry 98 98 Oxygen Delivery Method Room Air Room Air 03/01/25 23:17 03/01/25 23:17 03/01/25 23:19 Temperature Temperature Source Pulse Rate 60 98 H Pulse Rate [Left] Respiratory Rate Blood Pressure 140/94 H Blood Pressure [Right Arm] Blood Pressure Mean 104 Blood Pressure Mean [Right Arm] Blood Pressure Source Blood Pressure Source [Right Arm] Blood Pressure Position Blood Pressure Position [Right Arm] 02 Sat by Pulse Oximetry 97 98 Oxygen Delivery Method Room Air Room Air 03/01/25 23:19 03/01/25 23:34 03/01/25 23:34 Temperature Temperature Source Pulse Rate 87 Pulse Rate [Left] Respiratory Rate Blood Pressure 105/62 L 102/52 L Blood Pressure [Right Arm] Blood Pressure Mean 76 69 Blood Pressure Mean [Right Arm] Blood Pressure Source Blood Pressure Source [Right Arm] Blood Pressure Position Blood Pressure Position [Right Arm] 02 Sat by Pulse Oximetry 96 Oxygen Delivery Method Room Air 03/02/25 00:49 Temperature 98.6 F Temperature Source Oral Pulse Rate 87 Pulse Rate [Left] Respiratory Rate 16 Blood Pressure 102/52 L Blood Pressure [Right Arm] Blood Pressure Mean Blood Pressure Mean [Right Arm] Blood Pressure Source Automatic Cuff Blood Pressure Source [Right Arm] Blood Pressure Position Sitting Blood Pressure Position [Right Arm] 02 Sat by Pulse Oximetry Oxygen Delivery Method Room Air Lab Data Lab results reviewed: Yes I reviewed the patient's lab results. Lab Results 03/01/25 21:10: WBC 12.3 H, RBC 4.73, Hgb 14.3, Hct 41.2, MCV 87.1, MCH 30.2, MCHC 34.7, RDW 13.2, Plt Count 380, MPV 8.8, Neut % (Auto) 81.1 H, Lymph % (Auto) 13.1, [place] % (Auto) 4.9, Eos % (Auto) 0.4, Baso % (Auto) 0.3, Neut # (Auto) 10.0 H, Lymph # (Auto) 1.6, [place] # (Auto) 0.6, Eos # (Auto) 0.1, Baso # (Auto) 0.0, Sodium 138, Potassium 3.9, Chloride 99, Carbon Dioxide 25, Anion Gap 17.9 H, BUN 19 H, Creatinine 0.90, Estimated Creat Clear 88, Estimated GFR 76, Est GFR ( Amer) 92, Glucose 113 H, Calcium 9.8, Magnesium 2.0, Total Bilirubin 0.5, AST 31, ALT 17, Alkaline Phosphatase 74, Troponin I < 0.01, Total Protein 9.3 H, Albumin 5.2 H, Globulin 4.1 H, Albumin/Globulin Ratio 1.3, Lipase 80, HCG, Quant < 2 03/01/25 21:27: SARS-CoV-2 (PCR) Not detected, Influenza A Untype (PCR) Not detected, Influenza Type B (PCR) Not detected 03/01/25 21:30: Urine Color Yellow, Urine Appearance Clear, Urine pH 6.0, Ur Specific [place] <= 1.005, Urine Protein Negative, Urine Glucose (UA) Negative, Urine Ketones Negative, Urine Blood 3+ A, Urine Nitrate Negative, Urine Bilirubin Negative, Urine Urobilinogen 0.2, Ur Leukocyte Esterase Negative, Urine RBC 5-10, Urine WBC Occasional, Ur Squamous Epith Cells None, Urine Bacteria 1+ Orders (Tests/Meds): ED MEDICATIONS Discontinued Medications Generic Name Dose Route Start Last Admin Trade Name Freq PRN Reason Stop Dose Admin Sodium Chloride 1,000 mls @ 999 mls/hr 03/01/25 23:18 03/02/25 00:27 Sod Chlor 0.9% 1000ml Bag IV 03/02/25 00:18 Infused .Q1H1M ONE Infusion Iopamidol 75 ml 03/01/25 22:22 03/01/25 22:23 Iopamidol-370 (76%);100ml Bottle IV 03/01/25 22:23 75 ml ONCE ONE Administration Ketorolac Tromethamine 30 mg 03/01/25 21:13 03/01/25 21:40 Ketorolac 30mg/Ml Vial IV 03/01/25 21:14 30 mg ONCE ONE Administration Ondansetron HCl 4 mg 03/01/25 21:13 03/01/25 21:40 Ondansetron 4mg/2ml Vial IV 03/01/25 21:14 4 mg ONCE ONE Administration Tamsulosin HCl 0.4 mg 03/01/25 23:18 03/01/25 23:30 Tamsulosin 0.4mg Capsule PO 03/01/25 23:19 0.4 mg ONCE ONE Administration ORDERS Category Date Time Status CT abdomen pelvis w con Stat Cat Scan 03/01/25 21:13 Completed Beta HCG, Quant [HCG,Quantitative] Stat Lab 03/01/25 21:10 Completed CBC [Complete Blood Count Auto Diff] Stat Lab 03/01/25 21:10 Completed Comprehensive Metabolic Panel Stat Lab 03/01/25 21:10 Completed Lipase Stat Lab 03/01/25 21:10 Completed Magnesium Stat Lab 03/01/25 21:10 Completed Rapid PCR Covid and Flu A/B Stat Lab 03/01/25 21:27 Completed Trop I [Troponin I] Stat Lab 03/01/25 21:10 Completed UA [Urinalysis and Microscopic] Stat Lab 03/01/25 21:30 Completed Urine Culture Stat Micro 03/01/25 21:30 Received Medical Decision Narrative: Patient is a 24-year-old female presenting to the emergency department for evaluation of inability to urinate. Patient is hemodynamically stable and nontoxic-appearing upon arrival, afebrile. Differential diagnosis includes obstructing ureter, kidney stone, UTI, among others. Workup will be conducted with hematologic labs, specific imaging, provocative tests. Initial inventions include crystalloid bolus, analgesics, antibiotics. Bladder scanner showed more than 600 mL of urine so I ordered a standing Mead. Constance Bryant, DO I assumed care of the patient. Mead was placed and 1200 of urine Patient's UA showed no evidence infection but did show evidence of blood. Patient's labs were reviewed and interpreted by myself: CBC showed mild leukocytosis of 12, hemoglobin was stable. Chemistry was notable for mild elevated anion gap of 17 otherwise unremarkable. Troponin less than 0.01. CT scan of the abdomen was obtained which showed a 3 mm right sided nonobstructing renal stone. At this time, given that patient had a significant amount of urine in her bladder and was unable to void earlier, I gave patient 2 options. As I did not feel that patient's 3 mm obstructing stone was causing patient to have her urinary retention. Was offered either a voiding trial in the emergency department versus discharging home with Mead. Patient requested to trial a voiding trial in the emergency department. Patient was given IV fluids and Flomax. Patient's Mead was removed. Plan for patient to have a bladder scan performed after urinating and if patient is unable to fully void urine a Mead will be placed and patient will follow-up with her primary care provider. Patient was otherwise handed off to the next provider pending voiding trial. <Daniel Davis MD - Last Filed: 03/03/25 02:27> Vital Signs: 03/01/25 21:10 03/01/25 21:13 03/01/25 21:15 Temperature 98.6 F Temperature Source Oral Pulse Rate 99 H 102 H Pulse Rate [Left] 110 H Respiratory Rate 18 Blood Pressure Blood Pressure [Right Arm] 122/82 Blood Pressure Mean Blood Pressure Mean [Right Arm] 95 Blood Pressure Source Blood Pressure Source [Right Arm] Automatic Cuff Blood Pressure Position Blood Pressure Position [Right Arm] Sitting 02 Sat by Pulse Oximetry 99 100 100 Oxygen Delivery Method Room Air Room Air Room Air 03/01/25 21:30 03/01/25 21:30 03/01/25 21:41 Temperature Temperature Source Pulse Rate 105 H 105 H Pulse Rate [Left] Respiratory Rate Blood Pressure 120/80 Blood Pressure [Right Arm] Blood Pressure Mean 88 Blood Pressure Mean [Right Arm] Blood Pressure Source Blood Pressure Source [Right Arm] Blood Pressure Position Blood Pressure Position [Right Arm] 02 Sat by Pulse Oximetry 100 98 Oxygen Delivery Method Room Air Room Air 03/01/25 21:41 03/01/25 21:45 03/01/25 21:47 Temperature Temperature Source Pulse Rate 120 H 104 H Pulse Rate [Left] Respiratory Rate Blood Pressure 114/72 Blood Pressure [Right Arm] Blood Pressure Mean 82 Blood Pressure Mean [Right Arm] Blood Pressure Source Blood Pressure Source [Right Arm] Blood Pressure Position Blood Pressure Position [Right Arm] 02 Sat by Pulse Oximetry 99 99 Oxygen Delivery Method Room Air Room Air 03/01/25 22:00 03/01/25 22:26 03/01/25 22:30 Temperature Temperature Source Pulse Rate 107 H 90 Pulse Rate [Left] Respiratory Rate Blood Pressure 108/72 L Blood Pressure [Right Arm] Blood Pressure Mean 78 Blood Pressure Mean [Right Arm] Blood Pressure Source Blood Pressure Source [Right Arm] Blood Pressure Position Blood Pressure Position [Right Arm] 02 Sat by Pulse Oximetry 95 100 Oxygen Delivery Method Room Air Room Air 03/01/25 22:30 03/01/25 22:45 03/01/25 22:54 Temperature Temperature Source Pulse Rate 86 91 H Pulse Rate [Left] Respiratory Rate Blood Pressure 120/74 Blood Pressure [Right Arm] Blood Pressure Mean 83 Blood Pressure Mean [Right Arm] Blood Pressure Source Blood Pressure Source [Right Arm] Blood Pressure Position Blood Pressure Position [Right Arm] 02 Sat by Pulse Oximetry 100 98 Oxygen Delivery Method Room Air Room Air 03/01/25 23:00 03/01/25 23:13 03/01/25 23:16 Temperature Temperature Source Pulse Rate 60 61 Pulse Rate [Left] Respiratory Rate Blood Pressure 115/70 Blood Pressure [Right Arm] Blood Pressure Mean 83 Blood Pressure Mean [Right Arm] Blood Pressure Source Blood Pressure Source [Right Arm] Blood Pressure Position Blood Pressure Position [Right Arm] 02 Sat by Pulse Oximetry 98 98 Oxygen Delivery Method Room Air Room Air 03/01/25 23:17 03/01/25 23:17 03/01/25 23:19 Temperature Temperature Source Pulse Rate 60 98 H Pulse Rate [Left] Respiratory Rate Blood Pressure 140/94 H Blood Pressure [Right Arm] Blood Pressure Mean 104 Blood Pressure Mean [Right Arm] Blood Pressure Source Blood Pressure Source [Right Arm] Blood Pressure Position Blood Pressure Position [Right Arm] 02 Sat by Pulse Oximetry 97 98 Oxygen Delivery Method Room Air Room Air 03/01/25 23:19 03/01/25 23:34 03/01/25 23:34 Temperature Temperature Source Pulse Rate 87 Pulse Rate [Left] Respiratory Rate Blood Pressure 105/62 L 102/52 L Blood Pressure [Right Arm] Blood Pressure Mean 76 69 Blood Pressure Mean [Right Arm] Blood Pressure Source Blood Pressure Source [Right Arm] Blood Pressure Position Blood Pressure Position [Right Arm] 02 Sat by Pulse Oximetry 96 Oxygen Delivery Method Room Air 03/02/25 00:49 Temperature 98.6 F Temperature Source Oral Pulse Rate 87 Pulse Rate [Left] Respiratory Rate 16 Blood Pressure 102/52 L Blood Pressure [Right Arm] Blood Pressure Mean Blood Pressure Mean [Right Arm] Blood Pressure Source Automatic Cuff Blood Pressure Source [Right Arm] Blood Pressure Position Sitting Blood Pressure Position [Right Arm] 02 Sat by Pulse Oximetry Oxygen Delivery Method Room Air Lab Data Lab Results 03/01/25 21:10: WBC 12.3 H, RBC 4.73, Hgb 14.3, Hct 41.2, MCV 87.1, MCH 30.2, MCHC 34.7, RDW 13.2, Plt Count 380, MPV 8.8, Neut % (Auto) 81.1 H, Lymph % (Auto) 13.1, [place] % (Auto) 4.9, Eos % (Auto) 0.4, Baso % (Auto) 0.3, Neut # (Auto) 10.0 H, Lymph # (Auto) 1.6, [place] # (Auto) 0.6, Eos # (Auto) 0.1, Baso # (Auto) 0.0, Sodium 138, Potassium 3.9, Chloride 99, Carbon Dioxide 25, Anion Gap 17.9 H, BUN 19 H, Creatinine 0.90, Estimated Creat Clear 88, Estimated GFR 76, Est GFR ( Amer) 92, Glucose 113 H, Calcium 9.8, Magnesium 2.0, Total Bilirubin 0.5, AST 31, ALT 17, Alkaline Phosphatase 74, Troponin I < 0.01, Total Protein 9.3 H, Albumin 5.2 H, Globulin 4.1 H, Albumin/Globulin Ratio 1.3, Lipase 80, HCG, Quant < 2 03/01/25 21:27: SARS-CoV-2 (PCR) Not detected, Influenza A Untype (PCR) Not detected, Influenza Type B (PCR) Not detected 03/01/25 21:30: Urine Color Yellow, Urine Appearance Clear, Urine pH 6.0, Ur Specific [place] <= 1.005, Urine Protein Negative, Urine Glucose (UA) Negative, Urine Ketones Negative, Urine Blood 3+ A, Urine Nitrate Negative, Urine Bilirubin Negative, Urine Urobilinogen 0.2, Ur Leukocyte Esterase Negative, Urine RBC 5-10, Urine WBC Occasional, Ur Squamous Epith Cells None, Urine Bacteria 1+ Orders (Tests/Meds): ED MEDICATIONS Discontinued Medications Generic Name Dose Route Start Last Admin Trade Name Mindy PRN Reason Stop Dose Admin Sodium Chloride 1,000 mls @ 999 mls/hr 03/01/25 23:18 03/02/25 00:27 Sod Chlor 0.9% 1000ml Bag IV 03/02/25 00:18 Infused .Q1H1M ONE Infusion Iopamidol 75 ml 03/01/25 22:22 03/01/25 22:23 Iopamidol-370 (76%);100ml Bottle IV 03/01/25 22:23 75 ml ONCE ONE Administration Ketorolac Tromethamine 30 mg 03/01/25 21:13 03/01/25 21:40 Ketorolac 30mg/Ml Vial IV 03/01/25 21:14 30 mg ONCE ONE Administration Ondansetron HCl 4 mg 03/01/25 21:13 03/01/25 21:40 Ondansetron 4mg/2ml Vial IV 03/01/25 21:14 4 mg ONCE ONE Administration Tamsulosin HCl 0.4 mg 03/01/25 23:18 03/01/25 23:30 Tamsulosin 0.4mg Capsule PO 03/01/25 23:19 0.4 mg ONCE ONE Administration ORDERS Category Date Time Status CT abdomen pelvis w con Stat Cat Scan 03/01/25 21:13 Completed Beta HCG, Quant [HCG,Quantitative] Stat Lab 03/01/25 21:10 Completed CBC [Complete Blood Count Auto Diff] Stat Lab 03/01/25 21:10 Completed Comprehensive Metabolic Panel Stat Lab 03/01/25 21:10 Completed Lipase Stat Lab 03/01/25 21:10 Completed Magnesium Stat Lab 03/01/25 21:10 Completed Rapid PCR Covid and Flu A/B Stat Lab 03/01/25 21:27 Completed Trop I [Troponin I] Stat Lab 03/01/25 21:10 Completed UA [Urinalysis and Microscopic] Stat Lab 03/01/25 21:30 Completed Urine Culture Stat Micro 03/01/25 21:30 Received Medical Decision Narrative: Patient is a 24-year-old female presenting to the emergency department for evaluation of inability to urinate. Patient is hemodynamically stable and nontoxic-appearing upon arrival, afebrile. Differential diagnosis includes obstructing ureter, kidney stone, UTI, among others. Workup will be conducted with hematologic labs, specific imaging, provocative tests. Initial inventions include crystalloid bolus, analgesics, antibiotics. Bladder scanner showed more than 600 mL of urine so I ordered a standing Mead. Constance Bryant, I assumed care of the patient. Mead was placed and 1200 of urine Patient's UA showed no evidence infection but did show evidence of blood. Patient's labs were reviewed and interpreted by myself: CBC showed mild leukocytosis of 12, hemoglobin was stable. Chemistry was notable for mild elevated anion gap of 17 otherwise unremarkable. Troponin less than 0.01. CT scan of the abdomen was obtained which showed a 3 mm right sided nonobstructing renal stone. At this time, given that patient had a significant amount of urine in her bladder and was unable to void earlier, I gave patient 2 options. As I did not feel that patient's 3 mm obstructing stone was causing patient to have her urinary retention. Was offered either a voiding trial in the emergency department versus discharging home with Mead. Patient requested to trial a voiding trial in the emergency department. Patient was given IV fluids and Flomax. Patient's Mead was removed. Plan for patient to have a bladder scan performed after urinating and if patient is unable to fully void urine a Mead will be placed and patient will follow-up with her primary care provider. Patient was otherwise handed off to the next provider pending voiding trial. Davis: Dr. Bryant had initially planned to hand this patient off to me, however she reportedly passed her voiding trial and Dr. Bryant discharged this patient prior to me actually assuming care. I was not involved in this patient's care. Critical Care <Chelsea Golden (ED), [employer] - Last Filed: 03/01/25 22:03> Critical Care Time Critical Care Time: No
[2025-03-01 21:19] LABS: Hematocrit 41.2 % (37.0-47.0); Hemoglobin 14.3 g/dL (12.2-16.2); Immature Granulocytes % 0.2 %; Mean Corpuscular HGB Conc 34.7 g/dL (31.8-35.4); Mean Corpuscular Hemoglobin 30.2 pg (27.0-31.2); Mean Corpuscular Volume 87.1 fl (81-99); Nucleated Red Blood Cells % 0 %; Platelet Count 380 K/mm3 (142-424); Red Blood Count 4.73 M/mm3 (4.20-5.40); Red Cell Distribution Width-SD 42.3 fL; White Blood Count 12.3 K/mm3 (4.8-10.8)
[2025-03-01 21:24] LABS: Albumin Level 5.2 g/dl (3.5-5.0); Chloride 99 mmol/L (98-107); Potassium 3.9 mmoL/L (3.5-5.1); Sodium 138 mmol/L (136-145)
[2025-03-01 21:26] LABS: Alanine Aminotransferase 17 U/L (12-78); Anion Gap 17.9 mEq/L (5-15); Aspartate Amino Transferase 31 U/L (14-36); Blood Urea Nitrogen 19 mg/dl (7-17); Carbon Dioxide 25 mmol/L (22.0-30.0); Creatinine Clearance Estimated 88 mL/min (50-200); Creatinine,Serum 0.90 mg/dl (0.52-1.04); Estimated Glomerular Filt Rate 76 ml/min (>60); GFR (African American) 92 ML/MIN (>60)
[2025-03-01 21:27] LABS: Albumin/Globulin Ratio 1.3 (1.1-1.8); Alkaline Phosphatase 74 U/L (38-126); Bilirubin,Total 0.5 mg/dl (0.2-1.3); Calcium 9.8 mg/dl (8.4-10.2); Globulin 4.1 g/dL (1.3-3.2); Glucose 113 mg/dl (74-100); Lipase 80 U/L (23-300); Magnesium 2.0 mg/dl (1.6-2.3); Total Protein,Serum 9.3 g/dl (6.3-8.2)
[2025-03-01 21:31] LABS: Coronavirus 19, PCR Not Detected (NotDetected); Influenza A, PCR Not Detected (NotDetected); Influenza B, PCR Not Detected (NotDetected)
[2025-03-01 21:33] LABS: Microscopic, Urine URINE MICROSCOPIC (MICROSCOPIC)
[2025-03-01 21:37] LABS: Bilirubin,Urine Negative (Negative); Color,Urine YELLOW (Yellow); Glucose,Urine (UA) Negative (Negative); Ketones,Urine Negative (Negative); Leukocyte Esterase,Urine Negative (Negative); PH,Urine 6.0 (5.0-8.5); Protein,Urine Negative (Negative); Specific Gravity, Urine <= 1.005 (1.005-1.030); Urobilinogen,Urine 0.2 EU/dl (0.2)
[2025-03-01] MEDS: KETOROLAC 30MG/ML VIAL 30 MG IV (21:40)
[2025-03-01] MEDS: ONDANSETRON 4MG/2ML VIAL 4 MG IV (21:40)
[2025-03-01 21:41] LABS: Troponin I < 0.01 ng/ml (0.00-0.034)
[2025-03-01 21:49] LABS: Bacteria,Urine 1+ /lpf; WBC,Urine Occasional #/hpf (0-3)
[2025-03-01] MEDS: IOPAMIDOL-370 (76%);100ML BOTTLE 75 ML IV (22:23)
[2025-03-01] MEDS: TAMSULOSIN 0.4MG CAPSULE 0.4 MG PO (23:30)
[2025-03-01] MEDS: 0.9 % SODIUM CHLORIDE 1000ML 1,000 ML 999 ML IV (23:30)
--- NOTE | 2025-03-01 23:52 | PC.NURSE ---
Indwelling singletary catheter discontinued, 1200ml in collection bag. Patient tolerated without any complaints.
--- NOTE | 2025-03-02 00:37 | PC.NURSE ---
Pt had 100ml of urine per bladder scan, pt urinated 100 ml into hat and had 0ml urine per bladder scan after urination.
[2025-03-02 00:49] VITALS: BP 102/52; PULSE 87; RESP 16; TEMP 37; O2SAT 96
== END 2025-03-02 00:51 | disposition home or self-care (01) ==
PROVIDERS: Nurse Practitioner; Emergency Provider Student in an Organized Health Care Education/Training Program
DX: R33.9 Retention of urine, unspecified (principal); N20.0 Calculus of kidney; R00.0 Tachycardia, unspecified; N83.201 Unspecified ovarian cyst, right side; F17.290 Nicotine dependence, other tobacco product, uncomplicated
CPT/HCPCS: 51702; 74177; 80053; 81001; 83690; 83735; 84484; 84702; 85025; 87086; 87636; 96361; 96374; 96375; 99285; J1885; J2405; J7030; Q9967